=== PATIENT | male | born 1955 | race Caucasian/White ===

== ENCOUNTER 2018-03-19 09:55 | Inpatient (IN) | payer OTHER ==
[~2018-03-19] VITALS: Ht 167.6 cm; Wt 96.9 kg
[2018-03-19] MEDS ORDERED: MoRPHine SULFATE 4 MG/ML 1 ML CARP\\VIAL IV STA ×2 (10:28→11:41)
[2018-03-19] MEDS ORDERED: METF1000 PO (10:48)
[2018-03-19] MEDS ORDERED: ATOR10TA82 PO (10:48)
[2018-03-19] MEDS ORDERED: DICL-201 PO (10:48)
[2018-03-19] MEDS ORDERED: PROP10TA7 PO (10:48)
[2018-03-19] MEDS ORDERED: TRAM-10 PO (10:48)
[2018-03-19] MEDS ORDERED: QUET1TAB34 PO (10:48)
[2018-03-19] MEDS ORDERED: NRN600 PO (10:48)
[2018-03-19] MEDS ORDERED: CYCL10TA6 PO (10:48)
[2018-03-19] MEDS ORDERED: CYM/60 PO (10:48)
[2018-03-19] MEDS ORDERED: TAMS0.4C38 PO (10:48)
[2018-03-19 10:58] LABS: BASO % 0.5 %; BASO ABS # 0.05 K/uL (0-0.2); EOS % 2.8 %; EOS ABS # 0.27 K/uL (0-0.5); HEMATOCRIT 44.1 % (42-52); HEMOGLOBIN 15.6 g/dL (14.0-18.0); IG# 0.06 K/uL (0.00-0.02); LYMPH % 20.1 %; LYMPH ABS # 1.95 K/uL (1.2-3.4); MEAN CELL VOLUME 88.6 fL (80-100); MEAN CORPUSCULAR HEMOGLOBIN 31.3 pg (25-34); MEAN CORPUSCULAR HGB CONC 35.4 g/dl (32-36); MEAN PLATELET VOLUME 10.7 fL (7.4-10.4); MONO % 8.4 %; MONO ABS # 0.82 K/uL (0.11-0.59); NEUT % 67.6 %; NEUT ABS # 6.56 K/uL (1.4-6.5); PLATELET COUNT 177 K/uL (130-400); RED CELL DISTRIBUTION WIDTH SD 41.6 fL (36.4-46.3); WHITE BLOOD COUNT 9.71 K/uL (4.8-10.8)
[2018-03-19 11:18] LABS: ALBUMIN 3.7 gm/dl (3.4-5.0); CALCIUM 8.3 mg/dl (8.5-10.1); CREATININE 1.35 mg/dl (0.60-1.40); POTASSIUM 4.8 mmol/L (3.5-5.1); TOTAL PROTEIN 7.3 gm/dl (6.4-8.2)
[2018-03-19] MEDS ORDERED: SODIUM CHLORIDE 0.9% 1000ML 1,000 ML IV STA (11:24)
--- NOTE | 2018-03-19 11:34 | DIAGNOSTIC IMAGING REPORT ---
CT LUMBAR SPINE WITHOUT CT DOSE: 719.11 mGy.cm CLINICAL HISTORY: low back pain, hx spinal surgeries TECHNIQUE: Helical images were acquired in transverse plane. Reformatted sagittal and coronal images were reviewed. A dose lowering technique was utilized adhering to the principles of ALARA. CONTRAST: No contrast was administered COMPARISON STUDY: None. FINDINGS: L1-2 level: There is a minimal circumferential disc bulge. There is no spinal or foraminal stenosis. L2-3 level: There is an L2 compression fracture which appears chronic. There is minimal retrolisthesis of L2 on L3. There is a mild circumferential disc bulge. There is no significant spinal stenosis. There is minor foraminal narrowing. L3-4 level: There are postsurgical changes of a posterior laminectomy and posterior spinal fusion. There is a suspected large anterior extradural lesion (27 x 11 mm). Evaluation is limited due to artifact from the hardware. An MRI is recommended in follow-up. L4-5 level: There are postsurgical changes of a posterior laminectomy. There is evidence for posterior spinal fusion. There is no significant spinal or foraminal stenosis. L5-S1 level: There are postsurgical changes of a discectomy and interbody fusion. There is a grade 1 spondylolisthesis of L5 and S1. There is mild endplate irregularity. There is no significant spinal or foraminal stenosis. There is a 36 mm right renal cyst. IMPRESSION: 1. Examination limited due to artifact from an L3-S1 spinal fusion with pedicle screw fixation 2. L2 compression fracture which is felt to be old 3. Suspected large anterior extradural lesion at the L3 level. On a statistical basis this represents a large extruded disc herniation although other pathologic entities cannot be excluded. An emergent MRI study without and with contrast is recommended. Electronically signed by: Yan Robins M.D. 03/19/2018 11:33 AM Dictated Date/Time: 03/19/2018 11:22 AM
[2018-03-19] MEDS ORDERED: HYDROmorphone INJ 1 MG/ML SYR IV STA (12:31)
[2018-03-19] MEDS ORDERED: HYDROmorphone INJ 0.5 MG/0.5 ML SYR IV STA (15:15)
--- NOTE | 2018-03-19 15:29 | DIAGNOSTIC IMAGING REPORT ---
LUMBAR SPINE MRI WITH AND WITHOUT CONTRAST HISTORY: low back pain TECHNIQUE: Multiplanar multisequence MRI of the lumbar spine was performed both before and after the intravenous administration of contrast. COMPARISON: Lumbar spine CT 03/19/2018. FINDINGS: For the purpose of the report the L5-S1 disc space will be located on axial image 25 of 26. There is 5 mm of anterolisthesis of L5-S1, unchanged. The L5-S1 disc space appears fused. There is posterior decompression fusion from L3 through S1 with pedicle screws and rods. The conus terminates at the T12-L1 disc space. Moderate anterior wedging within the L2 vertebral body which demonstrates mild edema. This favors a subacute to chronic compression deformity. No acute fractures within the lumbar spine. Metallic artifact seen within the mid to lower lumbar spine. The bladder is markedly distended. Paraspinal soft tissues are unremarkable. Mild disc space narrowing at L4-5. Moderate to severe disc space narrowing at L2-L3. L1-L2: Small broad-based posterior disc bulge without significant central canal or neural foraminal narrowing. L2-L3: The mid to posterior aspect of the L2-L3 disc space is filled with fluid rather than disc material. There is a large lobular T2 hypointense, T1 hypointense nonenhancing structure which demonstrates located primarily posterior to the L3 vertebral body. This measures 2.3 x 2.2 x 1.0 cm. This appears to represent a large disc extrusion with inferior subligamentous migration. This results in moderate to severe central canal narrowing. There is mild bilateral neural foraminal narrowing. This compresses the transiting bilateral nerve roots. L3-L4: No significant central canal narrowing due to the posterior decompression. Severe left neural foraminal narrowing due to the L2-L3 disc herniation. Mild right neural foraminal narrowing. L4-L5: Moderate right neural foraminal narrowing. No significant central canal narrowing. Mild left neural foraminal narrowing. L5-S1: No significant central canal narrowing. There is severe bilateral neural foraminal narrowing due to the spondylolisthesis. IMPRESSION: 1. A 2.2 x 2.2 x 1.0 cm hypointense lobular structure posterior to the L3 vertebral body resulting in moderate to severe central canal narrowing. This appears to represent a large L2-L3 disc extrusion. 2. Additional degenerative changes as described above. 3. L3-S1 posterior decompression and fusion. 4. Distended bladder. Recommend catheterization. 5. Moderate anterior wedging within the L2 vertebral body. This favors a subacute to chronic compression fracture. Electronically signed by: Carter Whitman M.D. 03/19/2018 3:28 PM Dictated Date/Time: 03/19/2018 2:55 PM
[2018-03-19] MEDS ORDERED: DEXAMETHASONE INJ 8 MG in SYRINGE 0 ML IV STA (15:48)
--- NOTE | 2018-03-19 16:34 | DIAGNOSTIC IMAGING REPORT ---
L-SPINE MIN 4 VIEWS ROUTINE HISTORY: Pain back pain COMPARISON: None. FINDINGS: There is no fracture. No subluxation. Operative changes consistent with laminectomy and fusion from L3 through S1. Findings of an old moderate wedge deformity L2. Degenerative disc change L2-L3 and to a lesser extent remainder the lumbar spine CONSIDERED STABLE. IMPRESSION: No fracture or subluxation within the lumbar spine. Stable postoperative changes low lumbar spine. The above report was generated using voice recognition software. It may contain grammatical, syntax or spelling errors. Electronically signed by: Leoncio Mcnamara M.D. 03/19/2018 4:33 PM Dictated Date/Time: 03/19/2018 4:32 PM
--- NOTE | 2018-03-19 16:39 | EMERGENCY ROOM VISIT NOTE ---
History First contact with patient: 10:16 Chief Complaint: BACK PAIN Stated Complaint: BACK PAIN History of Present Illness The patient is a 62 year old male who presents to the Emergency Room with complaints of "back pain". The patient states that he has a history of chronic low back pain and recently moved here from [place]. He was traveling in a car all day yesterday. He woke up today and was doing all right noted when he moved he had some back pain and a dog jumped on the couch and causes pain to worsen. He states that it is now radiating down to the groin region. He states that he has a history of 2 surgeries as well as currently a large disc bulge and compression fracture. He states that his pain was an 8-9/10 but is now a 15/10. No cauda equina symptoms. Review of Systems A complete 10-point Review of Systems was discussed with the patient, with pertinent positives and negatives listed in the History of Present Illness. All remaining Review of Systems questions can be considered negative unless otherwise specified. Past Medical/Surgical History Low back pain, diabetes, among others. Family History Noncontributory. Social History Smoking Status: Never Smoker Patient just moved to the area from [place]. Current/Historical Medications Scheduled Atorvastatin (Lipitor), 10 MG PO DAILY Cyclobenzaprine Hcl (Flexeril), 10 MG PO TID Diclofenac (Voltaren), 75 MG PO BID Duloxetine HCl (Cymbalta), 60 MG PO DAILY Gabapentin (Gabapentin), 1,200 MG PO TID Metformin Hcl (Glucophage), 1,000 MG PO BID Propranolol (Inderal), 10 MG PO DAILY Quetiapine Fumarate (Seroquel), 200 MG PO QPM Tamsulosin Hcl (Flomax), 0.4 MG PO HS Scheduled PRN Tramadol (Ultram), 50 MG PO Q6H PRN for Pain Physical Exam Vital Signs Date Time Temp Pulse Resp B/P (MAP) Pulse Ox O2 Delivery O2 Flow Rate FiO2 03/19/18 14:30 91 16 149/81 98 Nasal Cannula 3.0 03/19/18 13:45 96 16 151/88 98 Room Air 03/19/18 13:26 89 03/19/18 12:56 95 Nasal Cannula 2.0 03/19/18 12:37 95 16 124/105 97 Room Air 03/19/18 10:45 98 Room Air 03/19/18 10:42 82 16 106/28 96 Room Air 03/19/18 10:15 92 03/19/18 10:06 36.6 83 16 128/105 99 Room Air Physical Exam VITAL SIGNS - Vital signs and nursing notes were reviewed. Stable. GENERAL -62-year-old male appearing his stated age who is in no acute distress. Communicates well with provider and answers questions appropriately. SKIN - Without rashes. No meningeal or petechial rash. HEAD - NC/AT. EYES - Sclera anicteric. EARS - No deformities of external structures noted on gross examination bilaterally. NOSE - Midline and without cyanosis. No epistaxis or purulent drainage noted. MOUTH/OROPHARYNX - Without perioral cyanosis. NECK - No nuchal rigidity. LUNGS - Chest wall symmetric without accessory muscle use, intercostals retractions, or central cyanosis. Normal vesicular breath sounds CTA B/L. No wheezes, rales, or rhonchi appreciated. CARDIAC - RRR with S1/S2. No murmur, rubs, or gallops appreciated. ABDOMEN - Abdominal contour normal without pulsations or visible masses. BS normoactive all four quadrants. No tenderness, palpable masses, hepatosplenomegaly, or ascites noted. MUSCULOSKELETAL: No tenderness of the flanks noted. EXTREMITIES -no neurovascular deficit appreciated +5/5 strength noted in UE/LE bilaterally. NEUROLOGIC - Cranial nerves II through XII grossly intact. Sensory intact to light touch throughout. PSYCH - A&O, and cooperates fully with examiner. Pt is very pleasant and interacts well with examiner. Medical Decision & Procedures ER Provider Diagnostic Interpretation: CT LUMBAR SPINE WITHOUT CT DOSE: 719.11 mGy.cm CLINICAL HISTORY: low back pain, hx spinal surgeries TECHNIQUE: Helical images were acquired in transverse plane. Reformatted sagittal and coronal images were reviewed. A dose lowering technique was utilized adhering to the principles of ALARA. CONTRAST: No contrast was administered COMPARISON STUDY: None. FINDINGS: L1-2 level: There is a minimal circumferential disc bulge. There is no spinal or foraminal stenosis. L2-3 level: There is an L2 compression fracture which appears chronic. There is minimal retrolisthesis of L2 on L3. There is a mild circumferential disc bulge. There is no significant spinal stenosis. There is minor foraminal narrowing. L3-4 level: There are postsurgical changes of a posterior laminectomy and posterior spinal fusion. There is a suspected large anterior extradural lesion (27 x 11 mm). Evaluation is limited due to artifact from the hardware. An MRI is recommended in follow-up. L4-5 level: There are postsurgical changes of a posterior laminectomy. There is evidence for posterior spinal fusion. There is no significant spinal or foraminal stenosis. L5-S1 level: There are postsurgical changes of a discectomy and interbody fusion. There is a grade 1 spondylolisthesis of L5 and S1. There is mild endplate irregularity. There is no significant spinal or foraminal stenosis. There is a 36 mm right renal cyst. IMPRESSION: 1. Examination limited due to artifact from an L3-S1 spinal fusion with pedicle screw fixation 2. L2 compression fracture which is felt to be old 3. Suspected large anterior extradural lesion at the L3 level. On a statistical basis this represents a large extruded disc herniation although other pathologic entities cannot be excluded. An emergent MRI study without and with contrast is recommended. Electronically signed by: Yan Robins M.D. 03/19/2018 11:33 AM Dictated Date/Time: 03/19/2018 11:22 AM [~ rep ct add3]] LUMBAR SPINE MRI WITH AND WITHOUT CONTRAST HISTORY: low back pain TECHNIQUE: Multiplanar multisequence MRI of the lumbar spine was performed both before and after the intravenous administration of contrast. COMPARISON: Lumbar spine CT 03/19/2018. FINDINGS: For the purpose of the report the L5-S1 disc space will be located on axial image 25 of 26. There is 5 mm of anterolisthesis of L5-S1, unchanged. The L5-S1 disc space appears fused. There is posterior decompression fusion from L3 through S1 with pedicle screws and rods. The conus terminates at the T12-L1 disc space. Moderate anterior wedging within the L2 vertebral body which demonstrates mild edema. This favors a subacute to chronic compression deformity. No acute fractures within the lumbar spine. Metallic artifact seen within the mid to lower lumbar spine. The bladder is markedly distended. Paraspinal soft tissues are unremarkable. Mild disc space narrowing at L4-5. Moderate to severe disc space narrowing at L2-L3. L1-L2: Small broad-based posterior disc bulge without significant central canal or neural foraminal narrowing. L2-L3: The mid to posterior aspect of the L2-L3 disc space is filled with fluid rather than disc material. There is a large lobular T2 hypointense, T1 hypointense nonenhancing structure which demonstrates located primarily posterior to the L3 vertebral body. This measures 2.3 x 2.2 x 1.0 cm. This appears to represent a large disc extrusion with inferior subligamentous migration. This results in moderate to severe central canal narrowing. There is mild bilateral neural foraminal narrowing. This compresses the transiting bilateral nerve roots. L3-L4: No significant central canal narrowing due to the posterior decompression. Severe left neural foraminal narrowing due to the L2-L3 disc herniation. Mild right neural foraminal narrowing. L4-L5: Moderate right neural foraminal narrowing. No significant central canal narrowing. Mild left neural foraminal narrowing. L5-S1: No significant central canal narrowing. There is severe bilateral neural foraminal narrowing due to the spondylolisthesis. IMPRESSION: 1. A 2.2 x 2.2 x 1.0 cm hypointense lobular structure posterior to the L3 vertebral body resulting in moderate to severe central canal narrowing. This appears to represent a large L2-L3 disc extrusion. 2. Additional degenerative changes as described above. 3. L3-S1 posterior decompression and fusion. 4. Distended bladder. Recommend catheterization. 5. Moderate anterior wedging within the L2 vertebral body. This favors a subacute to chronic compression fracture. Electronically signed by: Carter Whitman M.D. 03/19/2018 3:28 PM Dictated Date/Time: 03/19/2018 2:55 PM Laboratory Results 03/19/18 10:40 Red Blood Count 4.98, Mean Corpuscular Volume 88.6, Mean Corpuscular Hemoglobin 31.3, Mean Corpuscular Hemoglobin Concent 35.4, Mean Platelet Volume 10.7, Neutrophils (%) (Auto) 67.6, Lymphocytes (%) (Auto) 20.1, Monocytes (%) (Auto) 8.4, Eosinophils (%) (Auto) 2.8, Basophils (%) (Auto) 0.5, Neutrophils # (Auto) 6.56, Lymphocytes # (Auto) 1.95, Monocytes # (Auto) 0.82, Eosinophils # (Auto) 0.27, Basophils # (Auto) 0.05 7/23/18 10:40 Test 03/19/18 10:40 03/19/18 13:20 White Blood Count 9.71 K/uL (4.8-10.8) Red Blood Count 4.98 M/uL (4.7-6.1) Hemoglobin 15.6 g/dL (14.0-18.0) Hematocrit 44.1 % (42-52) Mean Corpuscular Volume 88.6 fL (80-100) Mean Corpuscular Hemoglobin 31.3 pg (25-34) Mean Corpuscular Hemoglobin Concent 35.4 g/dl (32-36) Platelet Count 177 K/uL (130-400) Mean Platelet Volume 10.7 fL (7.4-10.4) Neutrophils (%) (Auto) 67.6 % Lymphocytes (%) (Auto) 20.1 % Monocytes (%) (Auto) 8.4 % Eosinophils (%) (Auto) 2.8 % Basophils (%) (Auto) 0.5 % Neutrophils # (Auto) 6.56 K/uL (1.4-6.5) Lymphocytes # (Auto) 1.95 K/uL (1.2-3.4) Monocytes # (Auto) 0.82 K/uL (0.11-0.59) Eosinophils # (Auto) 0.27 K/uL (0-0.5) Basophils # (Auto) 0.05 K/uL (0-0.2) RDW Standard Deviation 41.6 fL (36.4-46.3) RDW Coefficient of Variation 13.0 % (11.5-14.5) Immature Granulocyte % (Auto) 0.6 % Immature Granulocyte # (Auto) 0.06 K/uL (0.00-0.02) Anion Gap 7.0 mmol/L (3-11) Est Creatinine Clear Calc Drug Dose 65.5 ml/min Estimated GFR () 64.3 Estimated GFR (Non- 55.5 BUN/Creatinine Ratio 14.3 (10-20) Calcium Level 8.3 mg/dl (8.5-10.1) Total Bilirubin 0.8 mg/dl (0.2-1) Aspartate Amino Transf (AST/SGOT) 34 U/L (15-37) Alanine Aminotransferase (ALT/SGPT) 44 U/L (12-78) Alkaline Phosphatase 139 U/L (45-117) Total Protein 7.3 gm/dl (6.4-8.2) Albumin 3.7 gm/dl (3.4-5.0) Globulin 3.6 gm/dl (2.5-4.0) Albumin/Globulin Ratio 1.0 (0.9-2) Medications Administered Medications (Trade) Dose Ordered Sig/Shemar Route Start Time Stop Time Status Last Admin Dose Admin Morphine Sulfate (MoRPHine SULFATE INJ) 4 mg NOW STAT IV 03/19/18 10:28 03/19/18 10:30 DC 03/19/18 10:41 4 MG Sodium Chloride 1,000 ml @ 999 mls/hr Q1H1M STAT IV 03/19/18 11:24 03/19/18 12:24 DC 03/19/18 11:24 999 MLS/HR Morphine Sulfate (MoRPHine SULFATE INJ) 4 mg NOW STAT IV 03/19/18 11:41 03/19/18 11:43 DC 03/19/18 12:23 4 MG Hydromorphone HCl (Dilaudid Inj) 1 mg NOW STAT IV 03/19/18 12:31 03/19/18 12:32 DC 03/19/18 12:55 1 MG Hydromorphone HCl (Dilaudid Inj) 0.5 mg NOW STAT IV 03/19/18 15:15 03/19/18 15:16 DC 03/19/18 15:20 0.5 MG Medical Decision Patient was seen and evaluated as above in room B11. Review was performed of nursing notes and vital signs. After obtaining a thorough history and physical examination the above work up was performed. He presents to us today via ambulance with a large amount of back pain. He is diaphoretic on exam, and appears to be in pain. CT scan was obtained secondary to his presentation as well as his underlying surgical history in the spine. The radiologist recommended an emergent MRI with contrast. This did reveal a large herniated disc. Other findings as noted above. I discussed this with the on-call spinal surgeon, Dr. Cabezas. We discussed other modalities and a plain film x-ray was recommended in addition to curb setter helper in identification of the hardware. I believe this is reasonable. We discussed steroids however the patient notes that last time he had these had a severe infection. He declined the steroids. This was canceled. Patient was admitted to medicine for pain control with likely a consult to spinal surgery. Patient was agreeable to staying. In review of his blood work, CBC reveals no leukocytosis or anemia. He does appear to be dehydrated with fluids and the calcium is low at 8.3. BUN 19 with creatinine 1.35. Urinalysis pending. I will note that on the MRI distended bladder was noted however the patient voided upon returning from MRI over 600 cc. I do not believe the catheterization is required. No evidence of infection. Case discussed with the amount and the hospitalist, Dr. Sophia Capps. Please refer to for the documentation regarding his stay. I will note that at no point throughout his stay did he exhibit cauda equina syndrome symptoms or signs. The patient was educated upon management, had questions answered prior to discharge, and was discharged home in good condition. In the evaluation and treatment of this patient the following differential diagnoses were entertained: Lumbar fracture, dislocation, cauda equina syndrome , herniated disc, acute abdomen, among others. Impression Primary Impression: L2-L3 disc extrusion Additional Impression: Intractable low back pain Departure Information Dispostion Admitted as an inpatient Condition FAIR Referrals No Doctor, Assigned (PCP) Patient Instructions My [facility] Problem Qualifiers
[2018-03-19] MEDS ORDERED: MoRPHine SULFATE 2 MG/ML CARP IV PRN (17:30)
[2018-03-19] MEDS ORDERED: ONDANSETRON INJ 2 MG/ML 2 ML VIAL IV PRN (17:30)
[2018-03-19] MEDS ORDERED: GLUCOSE 10 TABS/TUBE PO PRN (17:30)
[2018-03-19] MEDS ORDERED: CARBOHYDRATES FOR HYPOGLYCEMIA PO PRN (17:30)
[2018-03-19] MEDS ORDERED: ACETAMINOPHEN 325 MG TAB PO PRN (17:30)
[2018-03-19] MEDS ORDERED: MAGNESIUM HYDROXIDE SUSP 30 ML UDC PO PRN (17:30)
[2018-03-19] MEDS ORDERED: GLUCOSE 40% GEL 15 GM TUBE PO PRN (17:30)
[2018-03-19] MEDS ORDERED: GLUCAGON FOR INJ 1 MG VIAL SQ PRN (17:30)
[2018-03-19] MEDS ORDERED: DEXTROSE 50% 50 ML SYR IV PRN (17:30)
--- NOTE | 2018-03-19 17:36 | History and Physical ---
History & Physical Date & Time of Service: Mar 19, 2018 at 17:04 Chief Complaint: Back Pain Primary Care Physician: No Doctor, Assigned History of Present Illness Source: patient, family 62 y/o M c/o intractable back pain. Pt has hx of LBP. He had a fusion in 2011 and another fusion in 2015 with his prior ortho care in [place]. He continued to have some back pain after his surgeries, but it had been better overall until a few months ago when it started to worsen again. He had an MRI and was hospitalized again in [place] for back pain. Pt is moving here from [place] s/p a divorce. He has family in the area that he is staying with. He was lying on the couch when a dog jumped on him and this caused his LBP to get even worse, so he came to the ED. He is limited in mobility due to pain, but maintains ability to move his LE. He does note a bit of urine incontinence in the night which is minimal and he attributes to flomax and flexaril combination. He has no issues with incontinence during the day. He feels his usual otherwise. He has been eating without issue. Pt denies fever, SOB, chest pain, abd pain, n/v/c /d, LE pain or swelling. Pt states he has afib, but had an ablation in 2014 and was told he no longer needs anticoagulation. Past Medical/Surgical History Afib s/p ablation HTN DM BPH Depression Chronic pain syndrome IBS Family History Mother: from [place] at 62 Father: from [place] at 67 Social History Smoking Status: Never Smoker Alcohol Use: occasionally (a few drinks every few months) Drug Use: none Allergies Coded Allergies: No Known Allergies (Unverified , 03/19/18) Home Medications Scheduled Atorvastatin (Lipitor), 10 MG PO DAILY Cyclobenzaprine Hcl (Flexeril), 10 MG PO TID Diclofenac (Voltaren), 75 MG PO BID Duloxetine HCl (Cymbalta), 60 MG PO DAILY Gabapentin (Gabapentin), 1,200 MG PO TID Metformin Hcl (Glucophage), 1,000 MG PO BID Propranolol (Inderal), 10 MG PO DAILY Quetiapine Fumarate (Seroquel), 200 MG PO QPM Tamsulosin Hcl (Flomax), 0.4 MG PO HS Scheduled PRN Tramadol (Ultram), 50 MG PO Q6H PRN for Pain Review of Systems Pertinent positives and negatives reviewed in HPI--all others negative Physical Exam Vital Signs Date Time Temp Pulse Resp B/P (MAP) Pulse Ox O2 Delivery O2 Flow Rate FiO2 03/19/18 16:45 83 20 146/89 97 Nasal Cannula 2.0 03/19/18 14:30 91 16 149/81 98 Nasal Cannula 3.0 03/19/18 13:45 96 16 151/88 98 Room Air 03/19/18 13:26 89 03/19/18 12:56 95 Nasal Cannula 2.0 03/19/18 12:37 95 16 124/105 97 Room Air 03/19/18 10:45 98 Room Air 03/19/18 10:42 82 16 106/28 96 Room Air 03/19/18 10:15 92 03/19/18 10:06 36.6 83 16 128/105 99 Room Air General Appearance: no apparent distress, + obese Head: normocephalic, atraumatic Eyes: normal inspection, sclerae normal Respiratory/Chest: normal breath sounds, no respiratory distress Cardiovascular: regular rate, rhythm, no edema Abdomen/GI: non tender, soft Extremities/Musculoskelatal: no calf tenderness, no pedal edema Neurologic/Psych: alert, oriented x 3, + pertinent finding (a bit disoriented s /p pain meds in the ED) Skin: normal color, warm/dry Diagnostics Laboratory Results Results Past 24 Hours Test 03/19/18 10:40 03/19/18 13:20 Range/Units White Blood Count 9.71 4.8-10.8 K/uL Red Blood Count 4.98 4.7-6.1 M/uL Hemoglobin 15.6 14.0-18.0 g/dL Hematocrit 44.1 42-52 % Mean Corpuscular Volume 88.6 80-100 fL Mean Corpuscular Hemoglobin 31.3 25-34 pg Mean Corpuscular Hemoglobin Concent 35.4 32-36 g/dl Platelet Count 177 130-400 K/uL Mean Platelet Volume 10.7 7.4-10.4 fL Neutrophils (%) (Auto) 67.6 % Lymphocytes (%) (Auto) 20.1 % Monocytes (%) (Auto) 8.4 % Eosinophils (%) (Auto) 2.8 % Basophils (%) (Auto) 0.5 % Neutrophils # (Auto) 6.56 1.4-6.5 K/uL Lymphocytes # (Auto) 1.95 1.2-3.4 K/uL Monocytes # (Auto) 0.82 0.11-0.59 K/uL Eosinophils # (Auto) 0.27 0-0.5 K/uL Basophils # (Auto) 0.05 0-0.2 K/uL RDW Standard Deviation 41.6 36.4-46.3 fL RDW Coefficient of Variation 13.0 11.5-14.5 % Immature Granulocyte % (Auto) 0.6 % Immature Granulocyte # (Auto) 0.06 0.00-0.02 K/uL Sodium Level 137 136-145 mmol/L Potassium Level 4.8 3.5-5.1 mmol/L Chloride Level 106 98-107 mmol/L Carbon Dioxide Level 24 21-32 mmol/L Anion Gap 7.0 3-11 mmol/L Blood Urea Nitrogen 19 7-18 mg/dl Creatinine 1.35 0.60-1.40 mg/dl Est Creatinine Clear Calc Drug Dose 65.5 ml/min Estimated GFR () 64.3 Estimated GFR (Non- 55.5 BUN/Creatinine Ratio 14.3 10-20 Random Glucose 203 70-99 mg/dl Calcium Level 8.3 8.5-10.1 mg/dl Total Bilirubin 0.8 0.2-1 mg/dl Aspartate Amino Transf (AST/SGOT) 34 15-37 U/L Alanine Aminotransferase (ALT/SGPT) 44 12-78 U/L Alkaline Phosphatase 139 45-117 U/L Total Protein 7.3 6.4-8.2 gm/dl Albumin 3.7 3.4-5.0 gm/dl Globulin 3.6 2.5-4.0 gm/dl Albumin/Globulin Ratio 1.0 0.9-2 Urine Color YELLOW Urine Appearance CLEAR CLEAR Urine pH 5.5 4.5-7.5 Urine Specific [place] 1.020 1.000-1.030 Urine Protein NEG NEG Urine Glucose (UA) 2+ NEG Urine Ketones NEG NEG Urine Occult Blood NEG NEG Urine Nitrite NEG NEG Urine Bilirubin NEG NEG Urine Urobilinogen NEG NEG Urine Leukocyte Esterase NEG NEG Diagnostic Radiology CT L-spine: 1. Examination limited due to artifact from an L3-S1 spinal fusion with pedicle screw fixation 2. L2 compression fracture which is felt to be old 3. Suspected large anterior extradural lesion at the L3 level. On a statistical basis this represents a large extruded disc herniation although other pathologic entities cannot be excluded. An emergent MRI study without and with contrast is recommended. MRI L-spine: 1. A 2.2 x 2.2 x 1.0 cm hypointense lobular structure posterior to the L3 vertebral body resulting in moderate to severe central canal narrowing. This appears to represent a large L2-L3 disc extrusion. 2. Additional degenerative changes as described above. 3. L3-S1 posterior decompression and fusion. 4. Distended bladder. Recommend catheterization. 5. Moderate anterior wedging within the L2 vertebral body. This favors a subacute to chronic compression fracture. XR L-spine: No fracture or subluxation within the lumbar spine. Stable postoperative changes low lumbar spine. Impression Assessment and Plan 62 y/o M who was admitted on 03/19 with intractable LBP LBP: CT and emergent MRI noted for severe disc herniation Hx of fusion x2 with ortho in [place] ED discussed with Dr. Cabezas who rec'd for decadron, however pt refused due to prior bad experience Toradol, morphine EKG pending Afib/HTN: stable, states off of anticoagulation s/p ablation in 2015 continue home meds DM: metformin only SSI PRN A1c pending BPH: continue home meds Depression: continue home meds Chronic pain syndrome: continue gabapentin Other: Full code DM AHA diet SCDs for DVT proph given possible OR Resuscitation Status VTE Prophylaxis Will order VTE Prophylaxis: Yes
[2018-03-19 18:47] VITALS: BP 137/86; PULSE 71; TEMP 36.5; O2SAT 96; BMI 34.5
[2018-03-19] MEDS: KETOROLAC TROMETHAMINE 30 MG/ML VIAL IV PRN (19:49)
[2018-03-19] MEDS ORDERED: NURSING VERBAL MED ORDER ONE (20:00)
[2018-03-19] MEDS: QUETIAPINE FUMARATE 200 MG TAB PO SCH (21:44)
[2018-03-19] MEDS: GABAPENTIN 600 MG TAB PO SCH (21:45)
[2018-03-19] MEDS: DICLOFENAC SOD EC 75 MG TABCR PO SCH (21:45)
[2018-03-19] MEDS: TAMSULOSIN HCL 0.4 MG CAP PO SCH (21:45)
[2018-03-19] MEDS: CYCLOBENZAPRINE HCL 10 MG TAB PO SCH (21:45)
[2018-03-19] MEDS: INSULIN ASPART 100 UNITS/ML 3 ML PEN SC SCH (21:50)
[2018-03-19 23:25] VITALS: BP 123/79; PULSE 69; TEMP 36.5; O2SAT 99
[2018-03-19] MEDS: TRAMADOL HCL 50 MG TAB PO PRN (23:42)
[2018-03-20] MEDS: MoRPHine SULFATE 4 MG/ML 1 ML CARP\\VIAL IV PRN ×3 (04:37→17:18)
[2018-03-20 07:09] LABS: HEMOGLOBIN A1C 8.1 % (4.5-5.6)
[2018-03-20] MEDS: TRAMADOL HCL 50 MG TAB PO PRN ×3 (07:41→20:37)
[2018-03-20] MEDS: KETOROLAC TROMETHAMINE 30 MG/ML VIAL IV PRN ×3 (07:42→20:37)
[2018-03-20] MEDS: CYCLOBENZAPRINE HCL 10 MG TAB PO SCH ×3 (07:42→20:38)
[2018-03-20] MEDS: GABAPENTIN 600 MG TAB PO SCH ×3 (07:43→20:38)
[2018-03-20 08:38] VITALS: BP 126/79; PULSE 58; TEMP 36.4; O2SAT 99
[2018-03-20] MEDS: DULOXETINE HCL 60 MG CAP PO SCH (08:51)
[2018-03-20] MEDS: ATORVASTATIN 10 MG TAB PO SCH (08:52)
[2018-03-20] MEDS: DICLOFENAC SOD EC 75 MG TABCR PO SCH ×2 (08:52→20:38)
[2018-03-20] MEDS: PROPRANOLOL HCL 10 MG TAB PO SCH (08:52)
[2018-03-20] MEDS: INSULIN ASPART 100 UNITS/ML 3 ML PEN SC SCH ×4 (08:57→20:42)
--- NOTE | 2018-03-20 13:02 | Orthopedic Consultation ---
Orthopedic Consultation Date of Consultation: Mar 20, 2018. Attending Physician: Nikos Mcclelland D.O. Reason for Consultation: Back and leg pain History of Present Illness This is a 62-year-old male that presents with worsening back and bilateral leg pain. He states this is been progressive over the past several months. He is recently moved to the area from [place]. He has had history of back surgery in 2012 and again 2016 in [place] region. Describes pain across the lumbosacral junction of the bilateral buttocks anterior thighs and down his legs. The right leg extends below the knee into the dorsum of his foot. It is to the point that he is markedly incapacitated with limited ability to stand walk and ambulate with any duration. He is only comfortable lying completely still in bed. Appears that he is undergone extensive workup while in [place] but has not pursued any further surgery. MRI of the lumbar spine obtained yesterday at [facility] does demonstrate evidence of fusion with instrumentation L3 to the sacrum. Is an old compression fracture of L2 with a massive disc herniation at L2-3 and caudal migration creating significant lateral recess and central stenosis. Past Medical/Surgical History Medical Problems: (1) Intractable low back pain Status: Acute Social History Smoking Status: Never Smoker Alcohol Use: occasionally (a few drinks every few months) Drug Use: none Allergies Coded Allergies: No Known Allergies (Unverified , 03/19/18) Home Medications Scheduled Atorvastatin (Lipitor), 10 MG PO DAILY Cyclobenzaprine Hcl (Flexeril), 10 MG PO TID Diclofenac (Voltaren), 75 MG PO BID Duloxetine HCl (Cymbalta), 60 MG PO DAILY Gabapentin (Gabapentin), 1,200 MG PO TID Metformin Hcl (Glucophage), 1,000 MG PO BID Propranolol (Inderal), 10 MG PO DAILY Quetiapine Fumarate (Seroquel), 200 MG PO QPM Tamsulosin Hcl (Flomax), 0.4 MG PO HS Scheduled PRN Tramadol (Ultram), 50 MG PO Q6H PRN for Pain Current Inpatient Medications Current Inpatient Medications Medications (Trade) Dose Ordered Sig/Shemar Route Start Time Stop Time Status Last Admin Dose Admin Acetaminophen (Tylenol Tab) 650 mg Q4H PRN PO 03/19/18 17:30 04/18/18 17:29 Magnesium Hydroxide (Milk Of Magnesia Susp) 30 ml Q6H PRN PO 03/19/18 17:30 04/18/18 17:29 Ondansetron HCl (Zofran Inj) 4 mg Q6H PRN IV 03/19/18 17:30 04/18/18 17:29 Insulin Aspart (novoLOG ASPART) SLIDING SCALE If C... ACHS SC 03/19/18 21:00 04/18/18 20:59 03/20/18 08:57 4 UNITS Glucose (Glucose 40% Gel) 15-30 GRAMS 15 GRAMS... UD PRN PO 03/19/18 17:30 04/18/18 17:29 Glucose (Glucose Chew Tab) 4-8 Tablets 4 Tabl... UD PRN PO 03/19/18 17:30 04/18/18 17:29 Dextrose (Dextrose 50% 50ML Syringe) 25-50ML 25ML FOR ... UD PRN IV 03/19/18 17:30 04/18/18 17:29 Glucagon (Glucagon Inj) 1 mg UD PRN SQ 03/19/18 17:30 04/18/18 17:29 Carbohydrates (Carbohydrates For Hypoglycemia) 15-30 GRAMS 15 grams if BSG 54-69... UD PRN PO 03/19/18 17:30 04/18/18 17:29 Atorvastatin Calcium (Lipitor Tab) 10 mg DAILY PO 03/20/18 09:00 04/19/18 08:59 03/20/18 08:52 10 MG Cyclobenzaprine HCl (Flexeril Tab) 10 mg TID PO 03/19/18 21:00 04/18/18 20:59 03/20/18 07:42 10 MG Diclofenac Sodium (Voltaren Tab) 75 mg BID PO 03/19/18 21:00 04/18/18 20:59 03/20/18 08:52 75 MG Duloxetine HCl (Cymbalta Cap) 60 mg DAILY PO 03/20/18 09:00 04/19/18 08:59 03/20/18 08:51 60 MG Gabapentin (Neurontin Tab) 1,200 mg TID PO 03/19/18 21:00 04/18/18 20:59 03/20/18 07:43 1,200 MG Propranolol HCl (Inderal Tab) 10 mg DAILY PO 03/20/18 09:00 8/23/18 08:59 03/20/18 08:52 10 MG Quetiapine Fumarate (seroQUEL TAB) 200 mg QPM PO 03/19/18 21:00 04/18/18 20:59 Tamsulosin HCl (Flomax Cap) 0.4 mg HS PO 03/19/18 21:00 04/18/18 20:59 03/19/18 21:45 0.4 MG Tramadol HCl (Ultram Tab) 50 mg Q6H PRN PO 03/19/18 17:30 04/18/18 17:29 03/20/18 07:41 50 MG Ketorolac Tromethamine (Toradol Inj) 30 mg Q6H PRN IV 03/19/18 17:30 03/24/18 17:29 03/20/18 07:42 30 MG Morphine Sulfate (MoRPHine SULFATE INJ) 3 mg Q6H PRN IV 03/19/18 20:15 04/02/18 20:14 03/20/18 10:53 3 MG Physical Exam Date Time Temp Pulse Resp B/P (MAP) Pulse Ox O2 Delivery O2 Flow Rate FiO2 03/20/18 08:38 36.4 58 17 126/79 (95) 99 Room Air 03/20/18 07:57 Room Air 03/19/18 23:45 Room Air 03/19/18 23:25 36.5 69 14 123/79 (94) 99 Room Air 03/19/18 18:47 96 Room Air 03/19/18 18:47 36.5 71 14 137/86 Room Air 03/19/18 18:00 85 18 146/89 93 03/19/18 16:45 83 20 146/89 97 Nasal Cannula 2.0 03/19/18 14:30 91 16 149/81 98 Nasal Cannula 3.0 03/19/18 13:45 96 16 151/88 98 Room Air 03/19/18 13:26 89 On physical exam he is alert and oriented cooperative. He has reasonable strength detailed testing bilateral tremors. He does have some decreased sensation to his feet due to long-term diabetes and peripheral neuropathy but does have reasonable sensation to light touch and cold to the upper thighs. He has marked tension signs with straight leg raising bilaterally. Well-healed midline incision. Laboratory Results Last 24 Hours Test 03/19/18 13:20 03/19/18 19:26 03/19/18 20:58 03/20/18 06:18 Urine Color YELLOW Urine Appearance CLEAR Urine pH 5.5 Urine Specific [place] 1.020 Urine Protein NEG Urine Glucose (UA) 2+ Urine Ketones NEG Urine Occult Blood NEG Urine Nitrite NEG Urine Bilirubin NEG Urine Urobilinogen NEG Urine Leukocyte Esterase NEG Bedside Glucose 149 mg/dl 184 mg/dl Estimated Average Glucose 186 mg/dl Hemoglobin A1c 8.1 % Test 03/20/18 06:22 03/20/18 07:58 03/20/18 11:57 Hepatitis C Antibody Screen NEG Bedside Glucose 166 mg/dl 227 mg/dl Assessment & Plan Assessment severe spinal stenosis L2-3 with caudal migration of the massive disc herniation occupying bilateral lateral recesses. Plan at this time he has had a marked decline in status would like to consider surgical intervention. Would require removal of instrumentation at the L3-L4-L5 and S1 levels and extending the fusion to the to 3 level. We would try to perform this as soon as he is cleared for surgery.
[2018-03-20 13:42] VITALS: Ht 167.6 cm; Wt 96.9 kg
--- NOTE | 2018-03-20 14:15 | Anesthesiology Progress Note ---
Anesthesia Progress Note Date of Service Mar 20, 2018. Progress Notes The patient is a 62M scheduled for L3-S1 revision decompression and fusion by Dr. Cabezas. The patient has a history of SVT/afib s/p cardiac ablation, GUCCI with noncompliant BiPAP use, HTN, chronic pain syndrome, IBS, arthritis, DM, BPH , depression, and obesity. The patient currently has a loop recorder implant, and he states there have been no new episodes of afib/SVT in the last couple years. The patient has adequate functional status. An EKG showed NSR @ 70 bpm. The patient has received multiple general anesthetics without prior complications. The patient is an acceptable candidate for general anesthesia +/ - arterial line. A type and screen was ordered. All questions and concerns were addressed.
[2018-03-20 15:44] VITALS: BP 123/78; PULSE 57; TEMP 36.8; O2SAT 99
[2018-03-20 16:30] VITALS: O2SAT 99
[2018-03-20] MEDS: TAMSULOSIN HCL 0.4 MG CAP PO SCH (20:37)
[2018-03-20] MEDS: QUETIAPINE FUMARATE 200 MG TAB PO SCH (20:37)
--- NOTE | 2018-03-20 23:04 | Progress Note ---
Subjective Date of Service: Mar 20, 2018. Subjective Pt evaluation today including: conversation w/ patient, physical exam, lab review, review of studies, conversation w/ edi consultant, review of inpatient medication list Pain: moderate to severe low back pain PO Intake: poor Voiding: no voiding problems patient still in a great deal of pain discussed case with Dr. Cabezas, he recommends surgery, can perform on would require removal of hardware and new decompression and fusion for L2-3 patient agrees to surgery, however, need to work out insurance issues since his insurance was from [place] from surgical risk standpoint, he would be intermediate he is in NSR on EKG, BUN/Cr normal, CBC normal Problem List Medical Problems: (1) Intractable low back pain Status: Acute Review of Systems Musculoskeletal: + joint pain (severe low back pain) All Other Systems: Reviewed and Negative Medications Current Inpatient Medications Medications (Trade) Dose Ordered Sig/Shemar Route Start Time Stop Time Status Last Admin Dose Admin Acetaminophen (Tylenol Tab) 650 mg Q4H PRN PO 03/19/18 17:30 04/18/18 17:29 Magnesium Hydroxide (Milk Of Magnesia Susp) 30 ml Q6H PRN PO 03/19/18 17:30 04/18/18 17:29 Ondansetron HCl (Zofran Inj) 4 mg Q6H PRN IV 03/19/18 17:30 04/18/18 17:29 Insulin Aspart (novoLOG ASPART) SLIDING SCALE If C... ACHS SC 03/19/18 21:00 04/18/18 20:59 03/20/18 20:42 1 UNITS Glucose (Glucose 40% Gel) 15-30 GRAMS 15 GRAMS... UD PRN PO 03/19/18 17:30 04/18/18 17:29 Glucose (Glucose Chew Tab) 4-8 Tablets 4 Tabl... UD PRN PO 03/19/18 17:30 04/18/18 17:29 Dextrose (Dextrose 50% 50ML Syringe) 25-50ML 25ML FOR ... UD PRN IV 03/19/18 17:30 04/18/18 17:29 Glucagon (Glucagon Inj) 1 mg UD PRN SQ 03/19/18 17:30 04/18/18 17:29 Carbohydrates (Carbohydrates For Hypoglycemia) 15-30 GRAMS 15 grams if BSG 54-69... UD PRN PO 03/19/18 17:30 04/18/18 17:29 Atorvastatin Calcium (Lipitor Tab) 10 mg DAILY PO 03/20/18 09:00 04/19/18 08:59 03/20/18 08:52 10 MG Cyclobenzaprine HCl (Flexeril Tab) 10 mg TID PO 03/19/18 21:00 04/18/18 20:59 03/20/18 20:38 10 MG Diclofenac Sodium (Voltaren Tab) 75 mg BID PO 03/19/18 21:00 04/18/18 20:59 03/20/18 20:38 75 MG Duloxetine HCl (Cymbalta Cap) 60 mg DAILY PO 03/20/18 09:00 04/19/18 08:59 03/20/18 08:51 60 MG Gabapentin (Neurontin Tab) 1,200 mg TID PO 03/19/18 21:00 04/18/18 20:59 03/20/18 20:38 1,200 MG Propranolol HCl (Inderal Tab) 10 mg DAILY PO 03/20/18 09:00 04/19/18 08:59 03/20/18 08:52 10 MG Quetiapine Fumarate (seroQUEL TAB) 200 mg QPM PO 03/19/18 21:00 04/18/18 20:59 03/20/18 20:37 200 MG Tamsulosin HCl (Flomax Cap) 0.4 mg HS PO 03/19/18 21:00 04/18/18 20:59 03/20/18 20:37 0.4 MG Tramadol HCl (Ultram Tab) 50 mg Q6H PRN PO 03/19/18 17:30 04/18/18 17:29 03/20/18 20:37 50 MG Ketorolac Tromethamine (Toradol Inj) 30 mg Q6H PRN IV 03/19/18 17:30 03/24/18 17:29 03/20/18 20:37 30 MG Morphine Sulfate (MoRPHine SULFATE INJ) 3 mg Q6H PRN IV 03/19/18 20:15 04/02/18 20:14 03/20/18 17:18 3 MG Objective Vital Signs Date Time Temp Pulse Resp B/P (MAP) Pulse Ox O2 Delivery O2 Flow Rate FiO2 03/20/18 16:30 99 Room Air 03/20/18 15:44 36.8 57 16 123/78 (93) 99 Room Air 03/20/18 08:38 36.4 58 17 126/79 (95) 99 Room Air 03/20/18 07:57 Room Air 03/19/18 23:45 Room Air 03/19/18 23:25 36.5 69 14 123/79 (94) 99 Room Air Physical Exam General Appearance: no apparent distress, + obese Eyes: normal inspection, EOMI, sclerae normal ENT: normal ENT inspection, hearing grossly normal, pharynx normal Neck: supple, no adenopathy, no JVD, trachea midline Respiratory/Chest: chest non-tender, lungs clear, normal breath sounds, no respiratory distress, no accessory muscle use Cardiovascular: regular rate, rhythm, no edema, no gallop, no JVD, no murmur Abdomen: normal bowel sounds, non tender, soft, no organomegaly Extremities: no pedal edema, no calf tenderness, normal capillary refill, pelvis stable, + pertinent finding (severe low back pain, limited in movement) 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, alert, normal mood/affect, oriented x 3, + motor weakness, + sensory deficit Skin: normal color, warm/dry, no rash Laboratory Results Last 24 Hours Test 03/20/18 06:18 03/20/18 06:22 03/20/18 07:58 03/20/18 11:57 Estimated Average Glucose 186 mg/dl Hemoglobin A1c 8.1 % Hepatitis C Antibody Screen NEG Bedside Glucose 166 mg/dl 227 mg/dl Test 03/20/18 17:09 03/20/18 20:36 Bedside Glucose 213 mg/dl 173 mg/dl Assessment and Plan 62 y/o M who was admitted on 03/19 with intractable LBP LBP: CT and emergent MRI noted for severe disc herniation L2-3 Hx of fusion x2 with ortho in [place] d/w Dr Cabezas today, recommending surgery on 03/22 CM to determine insurance coverage prior to surgery Toradol, morphine EKG shows normal sinus rhythm, BUN/Cr stable, H/H stable would be intermediate cardiac risk but stable and can go for surgery, anesthesia consulted Afib/HTN: stable, states off of anticoagulation s/p ablation in 2014 continue Inderal DM: metformin only SSI PRN A1c pending BPH: continue home meds Depression: continue home meds Chronic pain syndrome: continue gabapentin Other: Full code DM AHA diet SCDs for DVT proph given possible OR tentatively plan for OR on 03/22
[2018-03-20 23:24] VITALS: BP 153/85; PULSE 67; TEMP 36.7; O2SAT 100
[2018-03-21] MEDS: MoRPHine SULFATE 4 MG/ML 1 ML CARP\\VIAL IV PRN ×2 (00:19→09:28)
[2018-03-21 07:13] VITALS: BP 130/75; PULSE 75; TEMP 36.5; O2SAT 96
[2018-03-21] MEDS: TRAMADOL HCL 50 MG TAB PO PRN (08:55)
[2018-03-21] MEDS: DICLOFENAC SOD EC 75 MG TABCR PO SCH ×2 (08:55→21:10)
[2018-03-21] MEDS: ATORVASTATIN 10 MG TAB PO SCH (08:55)
[2018-03-21] MEDS: PROPRANOLOL HCL 10 MG TAB PO SCH (08:55)
[2018-03-21] MEDS: CYCLOBENZAPRINE HCL 10 MG TAB PO SCH ×3 (08:55→21:10)
[2018-03-21] MEDS: DULOXETINE HCL 60 MG CAP PO SCH (08:56)
[2018-03-21] MEDS: GABAPENTIN 600 MG TAB PO SCH ×3 (08:56→21:09)
[2018-03-21] MEDS: INSULIN ASPART 100 UNITS/ML 3 ML PEN SC SCH ×4 (09:07→21:13)
[2018-03-21] MEDS ORDERED: HYDROmorphone INJ 2 MG/ML SYR/VIAL IV STA (12:49)
[2018-03-21 15:17] VITALS: BP 121/79; PULSE 64; TEMP 36.4; O2SAT 97
--- NOTE | 2018-03-21 15:21 | Progress Note ---
Progress Note Date of Service Mar 21, 2018. Progress Note At this time we need to cancel surgery for the a.m. We are hoping he can obtain some pain control with oral medications make arrangements for residency in [place] and proceed with surgery at a later date.
--- NOTE | 2018-03-21 15:41 | Progress Note ---
Subjective Date of Service: Mar 21, 2018. Subjective Pt evaluation today including: conversation w/ patient, physical exam, conversation w/ x ray consultant, review of inpatient medication list Pain: severe, radicular pain into right leg PO Intake: adequate Voiding: no voiding problems patient in severe pain, Morphine helping but not sufficiently changed to Dilaudid 1mg IV, more relief discussed with case management, surgery would not be covered by insurance he will not have surgery here will need to get pain controlled with oral pain medications option would be to become a resident of [place] and apply for medical assistance will discuss further with patient tomorrow, he is in too much pain today to be discharged Problem List Medical Problems: (1) Intractable low back pain Status: Acute Review of Systems Musculoskeletal: + joint pain (severe low back pain, right sided radicular pain ) All Other Systems: Reviewed and Negative Medications Current Inpatient Medications Medications (Trade) Dose Ordered Sig/Shemar Route Start Time Stop Time Status Last Admin Dose Admin Acetaminophen (Tylenol Tab) 650 mg Q4H PRN PO 03/19/18 17:30 04/18/18 17:29 Magnesium Hydroxide (Milk Of Magnesia Susp) 30 ml Q6H PRN PO 03/19/18 17:30 04/18/18 17:29 Ondansetron HCl (Zofran Inj) 4 mg Q6H PRN IV 03/19/18 17:30 04/18/18 17:29 Insulin Aspart (novoLOG ASPART) SLIDING SCALE If C... ACHS SC 03/19/18 21:00 04/18/18 20:59 03/21/18 13:19 5 UNITS Glucose (Glucose 40% Gel) 15-30 GRAMS 15 GRAMS... UD PRN PO 03/19/18 17:30 04/18/18 17:29 Glucose (Glucose Chew Tab) 4-8 Tablets 4 Tabl... UD PRN PO 03/19/18 17:30 04/18/18 17:29 Dextrose (Dextrose 50% 50ML Syringe) 25-50ML 25ML FOR ... UD PRN IV 03/19/18 17:30 04/18/18 17:29 Glucagon (Glucagon Inj) 1 mg UD PRN SQ 03/19/18 17:30 04/18/18 17:29 Carbohydrates (Carbohydrates For Hypoglycemia) 15-30 GRAMS 15 grams if BSG 54-69... UD PRN PO 03/19/18 17:30 04/18/18 17:29 Atorvastatin Calcium (Lipitor Tab) 10 mg DAILY PO 03/20/18 09:00 04/19/18 08:59 03/21/18 08:55 10 MG Cyclobenzaprine HCl (Flexeril Tab) 10 mg TID PO 03/19/18 21:00 04/18/18 20:59 03/21/18 13:17 10 MG Diclofenac Sodium (Voltaren Tab) 75 mg BID PO 03/19/18 21:00 04/18/18 20:59 03/21/18 08:55 75 MG Duloxetine HCl (Cymbalta Cap) 60 mg DAILY PO 03/20/18 09:00 04/19/18 08:59 03/21/18 08:56 60 MG Gabapentin (Neurontin Tab) 1,200 mg TID PO 03/19/18 21:00 04/18/18 20:59 03/21/18 13:17 1,200 MG Propranolol HCl (Inderal Tab) 10 mg DAILY PO 03/20/18 09:00 04/19/18 08:59 03/21/18 08:55 10 MG Quetiapine Fumarate (seroQUEL TAB) 200 mg QPM PO 03/19/18 21:00 04/18/18 20:59 03/20/18 20:37 200 MG Tamsulosin HCl (Flomax Cap) 0.4 mg HS PO 03/19/18 21:00 04/18/18 20:59 03/20/18 20:37 0.4 MG Tramadol HCl (Ultram Tab) 50 mg Q6H PRN PO 03/19/18 17:30 04/18/18 17:29 03/21/18 08:55 50 MG Ketorolac Tromethamine (Toradol Inj) 30 mg Q6H PRN IV 03/19/18 17:30 03/24/18 17:29 03/20/18 20:37 30 MG Morphine Sulfate (MoRPHine SULFATE INJ) 3 mg Q6H PRN IV 03/19/18 20:15 04/02/18 20:14 03/21/18 09:28 3 MG Hydromorphone HCl (Dilaudid Inj) 1 mg Q3H PRN IV 03/21/18 13:00 04/04/18 12:59 Objective Vital Signs Date Time Temp Pulse Resp B/P (MAP) Pulse Ox O2 Delivery O2 Flow Rate FiO2 03/21/18 15:17 36.4 64 16 121/79 (93) 97 Room Air 03/21/18 07:40 Room Air 03/21/18 07:13 36.5 75 20 130/75 (93) 96 Room Air 03/21/18 00:05 Room Air 03/20/18 23:24 36.7 67 18 153/85 (107) 100 Room Air 03/20/18 16:30 99 Room Air 03/20/18 15:44 36.8 57 16 123/78 (93) 99 Room Air Physical Exam General Appearance: no apparent distress, + obese Eyes: normal inspection, EOMI, sclerae normal ENT: normal ENT inspection, hearing grossly normal, pharynx normal Neck: supple, no adenopathy, no JVD, trachea midline Respiratory/Chest: chest non-tender, lungs clear, normal breath sounds, no respiratory distress, no accessory muscle use Cardiovascular: regular rate, rhythm, no edema, no gallop, no JVD, no murmur Abdomen: normal bowel sounds, non tender, soft, no organomegaly Extremities: normal inspection, no pedal edema, no calf tenderness, normal capillary refill, pelvis stable, + pertinent finding (cannot move lower back without pain, cannot move right leg without pain) 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 Cabezas and Dr. 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
[2018-03-21] MEDS: KETOROLAC TROMETHAMINE 30 MG/ML VIAL IV SCH ×2 (16:32→22:01)
[2018-03-21] MEDS: QUETIAPINE FUMARATE 200 MG TAB PO SCH (21:00)
[2018-03-21] MEDS: TAMSULOSIN HCL 0.4 MG CAP PO SCH (21:10)
[2018-03-21 23:23] VITALS: BP 146/79; PULSE 70; TEMP 36.6; O2SAT 100
[2018-03-22] MEDS: HYDROmorphone INJ 2 MG/ML SYR/VIAL IV PRN ×2 (01:47→05:30)
[2018-03-22] MEDS: KETOROLAC TROMETHAMINE 30 MG/ML VIAL IV SCH ×4 (03:31→21:00)
[2018-03-22 07:54] VITALS: BP 148/97; PULSE 72; TEMP 36.4; O2SAT 100
[2018-03-22] MEDS: OXYCODONE/ACETAMINOPHEN 10/325MG TAB PO PRN ×3 (09:30→19:45)
[2018-03-22] MEDS: PROPRANOLOL HCL 10 MG TAB PO SCH (09:31)
[2018-03-22] MEDS: DICLOFENAC SOD EC 75 MG TABCR PO SCH ×2 (09:31→21:00)
[2018-03-22] MEDS: GABAPENTIN 600 MG TAB PO SCH ×3 (09:31→20:59)
[2018-03-22] MEDS: ATORVASTATIN 10 MG TAB PO SCH (09:31)
[2018-03-22] MEDS: DULOXETINE HCL 60 MG CAP PO SCH (09:31)
[2018-03-22] MEDS: CYCLOBENZAPRINE HCL 10 MG TAB PO SCH ×3 (09:31→20:59)
[2018-03-22] MEDS: INSULIN ASPART 100 UNITS/ML 3 ML PEN SC SCH ×4 (09:36→21:08)
--- NOTE | 2018-03-22 14:28 | Progress Note ---
Subjective Date of Service: Mar 22, 2018. Subjective Pt evaluation today including: conversation w/ patient, conversation w/ family (cousin), physical exam, review of inpatient medication list Pain: moderate PO Intake: adequate Voiding: no voiding problems patient feeling a little better, pain moderately controlled this morning on Percocet 10/325mg still with severe, shooting radicular pain in right leg if he moves the wrong way he plans to reside with his cousin to establish residence in [place], plans to apply for medical assistance participating in PT/OT today, motivated to get out of the hospital revisited in the evening, discussed starting some longer acting narcotics for more steady pain control Problem List Medical Problems: (1) Intractable low back pain Status: Acute Review of Systems Musculoskeletal: + joint pain (moderate back pain) All Other Systems: Reviewed and Negative Medications Current Inpatient Medications Medications (Trade) Dose Ordered Sig/Shemar Route Start Time Stop Time Status Last Admin Dose Admin Acetaminophen (Tylenol Tab) 650 mg Q4H PRN PO 03/19/18 17:30 04/18/18 17:29 Magnesium Hydroxide (Milk Of Magnesia Susp) 30 ml Q6H PRN PO 03/19/18 17:30 04/18/18 17:29 Ondansetron HCl (Zofran Inj) 4 mg Q6H PRN IV 03/19/18 17:30 04/18/18 17:29 Insulin Aspart (novoLOG ASPART) SLIDING SCALE If C... ACHS SC 03/19/18 21:00 04/18/18 20:59 03/22/18 13:03 5 UNITS Glucose (Glucose 40% Gel) 15-30 GRAMS 15 GRAMS... UD PRN PO 03/19/18 17:30 04/18/18 17:29 Glucose (Glucose Chew Tab) 4-8 Tablets 4 Tabl... UD PRN PO 03/19/18 17:30 04/18/18 17:29 Dextrose (Dextrose 50% 50ML Syringe) 25-50ML 25ML FOR ... UD PRN IV 03/19/18 17:30 04/18/18 17:29 Glucagon (Glucagon Inj) 1 mg UD PRN SQ 03/19/18 17:30 04/18/18 17:29 Carbohydrates (Carbohydrates For Hypoglycemia) 15-30 GRAMS 15 grams if BSG 54-69... UD PRN PO 03/19/18 17:30 04/18/18 17:29 Atorvastatin Calcium (Lipitor Tab) 10 mg DAILY PO 03/20/18 09:00 04/19/18 08:59 03/22/18 09:31 10 MG Cyclobenzaprine HCl (Flexeril Tab) 10 mg TID PO 03/19/18 21:00 04/18/18 20:59 03/22/18 13:31 10 MG Diclofenac Sodium (Voltaren Tab) 75 mg BID PO 03/19/18 21:00 04/18/18 20:59 03/22/18 09:31 75 MG Duloxetine HCl (Cymbalta Cap) 60 mg DAILY PO 03/20/18 09:00 04/19/18 08:59 03/22/18 09:31 60 MG Gabapentin (Neurontin Tab) 1,200 mg TID PO 03/19/18 21:00 04/18/18 20:59 03/22/18 13:30 1,200 MG Propranolol HCl (Inderal Tab) 10 mg DAILY PO 03/20/18 09:00 04/19/18 08:59 03/22/18 09:31 10 MG Quetiapine Fumarate (seroQUEL TAB) 200 mg QPM PO 03/19/18 21:00 04/18/18 20:59 03/20/18 20:37 200 MG Tamsulosin HCl (Flomax Cap) 0.4 mg HS PO 03/19/18 21:00 04/18/18 20:59 03/21/18 21:10 0.4 MG Tramadol HCl (Ultram Tab) 50 mg Q6H PRN PO 03/19/18 17:30 04/18/18 17:29 03/21/18 08:55 50 MG Morphine Sulfate (MoRPHine SULFATE INJ) 3 mg Q6H PRN IV 03/19/18 20:15 04/02/18 20:14 03/21/18 09:28 3 MG Hydromorphone HCl (Dilaudid Inj) 1 mg Q3H PRN IV 03/21/18 13:00 04/04/18 12:59 03/22/18 05:30 1 MG Ketorolac Tromethamine (Toradol Inj) 30 mg Q6H IV 03/21/18 16:00 03/26/18 15:59 03/22/18 09:30 30 MG Oxycodone/ Acetaminophen (Percocet 10-325MG Tab) 1 tab Q4H PRN PO 03/21/18 15:45 04/04/18 15:44 03/22/18 13:31 1 TAB Objective Vital Signs Date Time Temp Pulse Resp B/P (MAP) Pulse Ox O2 Delivery O2 Flow Rate FiO2 03/22/18 07:54 36.4 72 17 148/97 (114) 100 Room Air 03/22/18 07:30 Room Air 03/22/18 00:44 Room Air 03/21/18 23:23 36.6 70 16 146/79 (101) 100 Room Air 03/21/18 16:00 Room Air 03/21/18 15:17 36.4 64 16 121/79 (93) 97 Room Air Physical Exam General Appearance: + mild distress (when his back pain flares up), + obese Eyes: normal inspection, EOMI, sclerae normal ENT: normal ENT inspection, hearing grossly normal, pharynx normal Neck: supple, no adenopathy, no JVD, trachea midline Respiratory/Chest: chest non-tender, lungs clear, normal breath sounds, no respiratory distress, no accessory muscle use Cardiovascular: regular rate, rhythm, no edema, no gallop, no JVD, no murmur Abdomen: normal bowel sounds, non tender, soft, no organomegaly Extremities: normal inspection, no pedal edema, no calf tenderness, pelvis stable, + pertinent finding (severe pain with twisting or flexion of lower pain) 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, no motor/sensory deficits, alert, normal mood/affect, oriented x 3 Skin: normal color, warm/dry, no rash Laboratory Results Last 24 Hours Test 03/21/18 17:33 03/21/18 20:35 03/22/18 08:05 03/22/18 12:12 Bedside Glucose 196 mg/dl 169 mg/dl 198 mg/dl 183 mg/dl Assessment and Plan 62 y/o M who was admitted on 03/19 with intractable LBP Severe low back pain with radiculopathy down right leg: MRI noted for severe disc herniation L2-3 Hx of fusion x 2 with ortho in [place] patient cannot have surgery here currently because his insurance would not cover surgery, insurance based out of [place] planning to become a resident of [place] and apply for medical assistance pain control plan with Oxycodone SR 15mg BID and Percocet 10/325mg q4 PRN discussed steroids with him, he refuses because he said that steroids lead to his MRSA infection will use Toradol IV for now, plan to use ibuprofen already on Neurontin 1200mg TID and Flexeril 10mg TID PRN PT/OT, patient cooperative and motivated, will need a rolling walker on discharge Afib/HTN: stable, states off of anticoagulation s/p ablation in 2014 continue Inderal, vitals stable DM: metformin only SSI PRN A1c pending BPH: continue home meds Depression: continue home meds Chronic pain syndrome: continue gabapentin Other: Full code DM AHA diet SCDs for DVT proph given possible OR try to discharge tomorrow if pain is controlled
[2018-03-22 15:58] VITALS: O2SAT 100
[2018-03-22 16:02] VITALS: BP 154/97; PULSE 61; TEMP 36.4; O2SAT 97
[2018-03-22] MEDS ORDERED: OXYCODONE HCL 15 MG TABCR (OXYCONTIN) PO SCH (17:00)
[2018-03-22] MEDS: QUETIAPINE FUMARATE 200 MG TAB PO SCH (20:59)
[2018-03-22] MEDS: TAMSULOSIN HCL 0.4 MG CAP PO SCH (20:59)
[2018-03-22 23:41] VITALS: BP 160/91; PULSE 64; TEMP 36.7; O2SAT 96
[2018-03-23] MEDS: KETOROLAC TROMETHAMINE 30 MG/ML VIAL IV SCH ×5 (04:10→21:38)
[2018-03-23 04:13] VITALS: BP 161/100; PULSE 74
[2018-03-23 06:57] VITALS: TEMP 36.6; O2SAT 99
[2018-03-23] MEDS: OXYCODONE/ACETAMINOPHEN 10/325MG TAB PO PRN (07:00)
[2018-03-23] MEDS ORDERED: OXYCODONE HCL 15 MG TABCR (OXYCONTIN) PO SCH (08:00)
[2018-03-23 08:29] VITALS: BP 144/93
[2018-03-23] MEDS: CYCLOBENZAPRINE HCL 10 MG TAB PO SCH ×3 (09:30→20:25)
[2018-03-23] MEDS: PROPRANOLOL HCL 10 MG TAB PO SCH (10:06)
[2018-03-23] MEDS: INSULIN ASPART 100 UNITS/ML 3 ML PEN SC SCH ×4 (10:09→21:41)
[2018-03-23] MEDS: GABAPENTIN 600 MG TAB PO SCH ×3 (10:51→20:26)
[2018-03-23] MEDS: DULOXETINE HCL 60 MG CAP PO SCH (10:51)
[2018-03-23] MEDS: ATORVASTATIN 10 MG TAB PO SCH (10:51)
--- NOTE | 2018-03-23 15:13 | Progress Note ---
Subjective Date of Service: Mar 23, 2018. Subjective Pt evaluation today including: conversation w/ patient, conversation w/ family , physical exam, review of inpatient medication list Pain: severe pain, radicular pain in right leg PO Intake: adequate Voiding: no voiding problems patient says that the Oxycontin ER not helping much, said that we would increase frequency can still use Percocet this morning the patient was sound asleep at 0900 so the long acting Oxycontin not given, Flexeril held as well he received Percocet at 0700 and he said he really did not sleep well last night due to pain talked with his family at the bedside he and family know that goal is not complete pain relief, just to make things tolerable for discharge Problem List Medical Problems: (1) Intractable low back pain Status: Acute Review of Systems Musculoskeletal: + joint pain (low back pain, radicular pain in right leg) All Other Systems: Reviewed and Negative Medications Current Inpatient Medications Medications (Trade) Dose Ordered Sig/Shemar Route Start Time Stop Time Status Last Admin Dose Admin Acetaminophen (Tylenol Tab) 650 mg Q4H PRN PO 03/19/18 17:30 04/18/18 17:29 Magnesium Hydroxide (Milk Of Magnesia Susp) 30 ml Q6H PRN PO 03/19/18 17:30 04/18/18 17:29 Ondansetron HCl (Zofran Inj) 4 mg Q6H PRN IV 03/19/18 17:30 04/18/18 17:29 Insulin Aspart (novoLOG ASPART) SLIDING SCALE If C... ACHS SC 03/19/18 21:00 04/18/18 20:59 03/23/18 13:22 8 UNITS Glucose (Glucose 40% Gel) 15-30 GRAMS 15 GRAMS... UD PRN PO 03/19/18 17:30 04/18/18 17:29 Glucose (Glucose Chew Tab) 4-8 Tablets 4 Tabl... UD PRN PO 03/19/18 17:30 04/18/18 17:29 Dextrose (Dextrose 50% 50ML Syringe) 25-50ML 25ML FOR ... UD PRN IV 03/19/18 17:30 04/18/18 17:29 Glucagon (Glucagon Inj) 1 mg UD PRN SQ 03/19/18 17:30 04/18/18 17:29 Carbohydrates (Carbohydrates For Hypoglycemia) 15-30 GRAMS 15 grams if BSG 54-69... UD PRN PO 03/19/18 17:30 04/18/18 17:29 Atorvastatin Calcium (Lipitor Tab) 10 mg DAILY PO 03/20/18 09:00 04/19/18 08:59 03/22/18 09:31 10 MG Cyclobenzaprine HCl (Flexeril Tab) 10 mg TID PO 03/19/18 21:00 04/18/18 20:59 03/23/18 13:22 10 MG Duloxetine HCl (Cymbalta Cap) 60 mg DAILY PO 03/20/18 09:00 04/19/18 08:59 03/22/18 09:31 60 MG Gabapentin (Neurontin Tab) 1,200 mg TID PO 03/19/18 21:00 04/18/18 20:59 03/23/18 13:22 1,200 MG Propranolol HCl (Inderal Tab) 10 mg DAILY PO 03/20/18 09:00 04/19/18 08:59 03/23/18 10:06 10 MG Quetiapine Fumarate (seroQUEL TAB) 200 mg QPM PO 03/19/18 21:00 04/18/18 20:59 03/22/18 20:59 200 MG Tamsulosin HCl (Flomax Cap) 0.4 mg HS PO 03/19/18 21:00 04/18/18 20:59 03/22/18 20:59 0.4 MG Tramadol HCl (Ultram Tab) 50 mg Q6H PRN PO 03/19/18 17:30 04/18/18 17:29 03/21/18 08:55 50 MG Morphine Sulfate (MoRPHine SULFATE INJ) 3 mg Q6H PRN IV 03/19/18 20:15 04/02/18 20:14 03/21/18 09:28 3 MG Hydromorphone HCl (Dilaudid Inj) 1 mg Q3H PRN IV 03/21/18 13:00 04/04/18 12:59 03/22/18 05:30 1 MG Ketorolac Tromethamine (Toradol Inj) 30 mg Q6H IV 03/21/18 16:00 03/26/18 15:59 03/23/18 10:56 30 MG Oxycodone/ Acetaminophen (Percocet 10-325MG Tab) 1 tab Q4H PRN PO 03/21/18 15:45 04/04/18 15:44 03/23/18 07:00 1 TAB Oxycodone HCl (Oxycontin Tab) 15 mg Q12H PO 03/23/18 08:00 04/06/18 07:59 Objective Vital Signs Date Time Temp Pulse Resp B/P (MAP) Pulse Ox O2 Delivery O2 Flow Rate FiO2 03/23/18 09:09 12 03/23/18 08:29 144/93 (110) 03/23/18 07:53 Room Air 03/23/18 06:57 36.6 21 99 Room Air 03/23/18 04:13 74 161/100 (120) 03/22/18 23:41 36.7 64 16 160/91 (114) 96 Room Air 03/22/18 19:45 Room Air 03/22/18 16:02 36.4 61 16 154/97 (116) 97 Room Air 03/22/18 15:58 100 Room Air Physical Exam General Appearance: no apparent distress, + obese Eyes: normal inspection, EOMI, sclerae normal ENT: normal ENT inspection, hearing grossly normal, pharynx normal Neck: supple, no adenopathy, no JVD, trachea midline Respiratory/Chest: chest non-tender, lungs clear, normal breath sounds, no respiratory distress, no accessory muscle use Cardiovascular: regular rate, rhythm, no edema, no gallop, no JVD, no murmur Abdomen: normal bowel sounds, non tender, soft, no organomegaly Extremities: normal inspection, no pedal edema, no calf tenderness, pelvis stable, + pertinent finding (decreased ROM of lower back, sharp, shooting radicular pain down right leg with movement) 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, no motor/sensory deficits, alert, normal mood/affect, oriented x 3 Skin: normal color, warm/dry, no rash Laboratory Results Last 24 Hours Test 03/22/18 17:09 03/22/18 20:47 03/23/18 08:01 03/23/18 12:20 Bedside Glucose 221 mg/dl 195 mg/dl 166 mg/dl 254 mg/dl Assessment and Plan 62 y/o M who was admitted on 03/19 with intractable LBP Severe low back pain with radiculopathy down right leg: MRI noted for severe disc herniation L2-3 Hx of fusion x 2 with ortho in [place] patient cannot have surgery here currently because his insurance would not cover surgery, insurance based out of [place] planning to become a resident of [place] and apply for medical assistance pain control plan with Oxycodone SR 15mg q8 and Percocet 10/325mg q4 PRN discussed steroids with him, he refuses because he said that steroids lead to his MRSA infection will use Toradol IV for now, plan to use ibuprofen already on Neurontin 1200mg TID and Flexeril 10mg TID PRN PT/OT, patient cooperative and motivated, will need a rolling walker on discharge still in too much pain for discharge Afib/HTN: stable, states off of anticoagulation s/p ablation in 2014 continue Inderal, vitals stable DM: metformin only SSI PRN A1c pending BPH: continue home meds Depression: continue home meds Chronic pain syndrome: continue gabapentin Other: Full code DM AHA diet SCDs for DVT proph given possible OR try to discharge tomorrow if pain is controlled
[2018-03-23 15:38] VITALS: BP 135/79; PULSE 70; TEMP 36.7; O2SAT 99
[2018-03-23] MEDS: OXYCODONE HCL 15 MG TABCR (OXYCONTIN) PO SCH (18:18)
[2018-03-23] MEDS: TRAMADOL HCL 50 MG TAB PO PRN (19:12)
[2018-03-23] MEDS: TAMSULOSIN HCL 0.4 MG CAP PO SCH (20:25)
[2018-03-23] MEDS: QUETIAPINE FUMARATE 200 MG TAB PO SCH (20:26)
[2018-03-23 23:22] VITALS: BP 154/89; PULSE 72; TEMP 36.7; O2SAT 99
[2018-03-24] MEDS: OXYCODONE HCL 15 MG TABCR (OXYCONTIN) PO SCH (00:04)
[2018-03-24] MEDS: OXYCODONE/ACETAMINOPHEN 10/325MG TAB PO PRN ×2 (01:57→06:00)
[2018-03-24] MEDS: KETOROLAC TROMETHAMINE 30 MG/ML VIAL IV SCH ×2 (04:05→10:41)
[2018-03-24 06:03] VITALS: BP 122/85; PULSE 65; TEMP 36.4; O2SAT 98
[2018-03-24 06:25] LABS: BASO % 0.9 %; BASO ABS # 0.06 K/uL (0-0.2); EOS % 6.9 %; EOS ABS # 0.46 K/uL (0-0.5); HEMATOCRIT 41.5 % (42-52); HEMOGLOBIN 14.8 g/dL (14.0-18.0); IG# 0.03 K/uL (0.00-0.02); LYMPH % 28.5 %; LYMPH ABS # 1.89 K/uL (1.2-3.4); MEAN CELL VOLUME 88.7 fL (80-100); MEAN CORPUSCULAR HEMOGLOBIN 31.6 pg (25-34); MEAN CORPUSCULAR HGB CONC 35.7 g/dl (32-36); MEAN PLATELET VOLUME 10.9 fL (7.4-10.4); MONO % 10.6 %; NEUT % 52.6 %; NEUT ABS # 3.49 K/uL (1.4-6.5); PLATELET COUNT 180 K/uL (130-400); RED CELL DISTRIBUTION WIDTH CV 12.8 % (11.5-14.5); RED CELL DISTRIBUTION WIDTH SD 41.1 fL (36.4-46.3); WHITE BLOOD COUNT 6.63 K/uL (4.8-10.8)
[2018-03-24 07:01] LABS: CALCIUM 8.9 mg/dl (8.5-10.1); CREATININE 1.28 mg/dl (0.60-1.40); POTASSIUM 4.8 mmol/L (3.5-5.1)
[2018-03-24] MEDS ORDERED: OXYCODONE HCL 15 MG TABCR (OXYCONTIN) PO SCH (08:00)
[2018-03-24] MEDS: TRAMADOL HCL 50 MG TAB PO PRN (08:28)
[2018-03-24] MEDS: GABAPENTIN 600 MG TAB PO SCH ×2 (08:29→13:33)
[2018-03-24] MEDS: CYCLOBENZAPRINE HCL 10 MG TAB PO SCH ×2 (08:30→13:33)
[2018-03-24] MEDS: DULOXETINE HCL 60 MG CAP PO SCH (08:30)
[2018-03-24] MEDS: PROPRANOLOL HCL 10 MG TAB PO SCH (08:31)
[2018-03-24] MEDS: ATORVASTATIN 10 MG TAB PO SCH (08:31)
[2018-03-24] MEDS: INSULIN ASPART 100 UNITS/ML 3 ML PEN SC SCH ×2 (09:24→13:38)
[2018-03-24] MEDS ORDERED: OXYSR15 PO (13:07)
[2018-03-24] MEDS ORDERED: OXYC-594 PO (13:07)
--- NOTE | 2018-03-24 13:17 | Discharge Instructions ---
Discharge Instructions Date of Service Mar 24, 2018. Admission Reason for Admission: Intractable pain due to disc herniation Discharge Discharge Diagnosis / Problem: Intractable pain due to disc herniation Discharge Goals Goal(s): Decrease discomfort, Improve function Activity Recommendations Activity Limitations: per Instructions/Follow-up section Lifting Limitations: no more than 5 pounds Exercise/Sports Limitations: as tolerated Shower/Bathe: no limitations Driving or Machine Use: no driving while on narcotics . Instructions / Follow-Up Instructions / Follow-Up Medications: - OXYCONTIN: 15mg three times a day for continuous pain relief, try to wean back to twice a day in the next few days and then maybe just at night - PERCOCET: 10/325mg, can take every 4 hours as needed but try to use less often if possible NARCOTICS, DO NOT TAKE MORE THAN PRESCRIBED Intractable low back pain and right leg radicular pain due to disc herniation for now, pain control is only option while awaiting medical assistance approval use Oxycontin 15mg TID and Percocet PRN, please cut back on dosing as pain allows for instance, if pain is controlled in the afternoon and/or if you are sleepy , don't take additional narcotics, wait until the evening continue to use the Flexeril and Neurontin which you were already taking for neuropathic and muscle pain goal for pain is not zero because that is likely not possible follow up [facility] with Dr. Felder on MonMarch 28 at 2:00 pm will ultimately need to follow up with Dr. Cabezas, [facility], once you have medical assistance Current Hospital Diet Patient's current hospital diet: Diabetes Type 2 Diet Discharge Diet Recommended Diet: Diabetes Type 2 Diet Pending Studies Studies pending at discharge: no Laboratory Results Hemoglobin A1c Test 03/20/18 06:18 Range/Units Estimated Average Glucose 186 mg/dl Hemoglobin A1c 8.1 H 4.5-5.6 % Medical Emergencies . Who to Call and When: Medical Emergencies: If at any time you feel your situation is an emergency, please call 911 immediately. . Non-Emergent Contact Non-Emergency issues call your: Primary Care Provider Call Non-Emergent contact if: you have a fever, your pain is not controlled, your pain is worsening, your pain is concerning you, you have any medication questions . . "Provider Documentation" section prepared by Nioks Mcclelland. . [place] Drug Monitoring Program Search Results: no issues identified
[2018-03-24 13:42] VITALS: BP 122/85; PULSE 65; TEMP 36.4; O2SAT 98
--- NOTE | 2018-03-24 14:15 | Discharge Summary ---
Discharge Summary Date of Service Mar 24, 2018. Discharge Summary Admission Date: Mar 19, 2018 at 17:24 Discharge Date: Mar 24, 2018 Discharge Disposition: Home Principal Diagnosis: Intractable low back pain due to disc herniation Problems/Secondary Diagnoses: Obesity DM type II Chronic pain neuropathy Procedures: none Consultations: Orthopedic surgery Medication Reconciliation New Medications: Oxycodone HCl (Oxycontin) 15 Mg Tabcr 15 MG PO Q8H, #90 TABS 0 Refills Oxycodone/Acetaminophen 10MG/325MG (Oxycodone/Acetaminophen 10MG/325MG) 1 Tab Tab 1 TAB PO Q4H PRN for Pain, #90 TAB 0 Refills Continued Medications: Atorvastatin (Lipitor) 10 Mg Tab 10 MG PO DAILY, TAB Cyclobenzaprine Hcl (Flexeril) 10 Mg Tab 10 MG PO TID, #21 TAB Diclofenac (Voltaren) 75 Mg Tabcr 75 MG PO BID, TAB WITH FOOD Duloxetine HCl (Cymbalta) 60 Mg Cap 60 MG PO DAILY Gabapentin (Gabapentin) 600 Mg Tab 1200 MG PO TID Metformin Hcl (Glucophage) 1,000 Mg Tab 1000 MG PO BID, TAB Propranolol (Inderal) 10 Mg Tab 10 MG PO DAILY, TAB Quetiapine Fumarate (Seroquel) 100 Mg Tab 200 MG PO QPM, TAB Tamsulosin Hcl (Flomax) 0.4 Mg Cap 0.4 MG PO HS, CAP Discontinued Medications: Tramadol (Ultram) 50 Mg Tab 50 MG PO Q6H PRN for Pain, TAB Discharge Exam Patient feeling better, pain controlled reasonably, no IV narcotics required in 48 hours. Long talk with patient and his cousin at the bedside about discharge plans. They have started the process of establishing residence in [place] and will then apply for medical assistance. Knows to follow up at [facility] on 03/28. Review of Systems: Constitutional: No fever, No chills, No sweats, No weight loss, No weakness , No fatigue, No problem reported Eyes: No worsening of vision, No eye pain, No redness, No discharge, No diplopia, No problem reported ENT: No hearing loss, No unusual epistaxis, No nasal symptoms, No sore throat, No tinnitus, No dental problems, No trouble swallowing, No problem reported Respiratory: No cough, No sputum, No wheezing, No shortness of breath, No dyspnea on exertion, No dyspnea at rest, No hemoptysis, No problem reported Cardiovascular: No chest pain, No orthopnea, No PND, No edema, No claudication, No palpitations, No problem reported Abdomen: No pain, No nausea, No vomiting, No diarrhea, No constipation, No GI bleeding, No problem reported Musculoskeletal: + joint pain (low back pain and right sided radicular pain to the knee), + muscle pain (bilateral paraspinal pain), No swelling, No calf pain Genitourinary - Male: No hematuria, No dysuria, No urinary frequency, No urinary urgency Neurologic: No memory loss, No paralysis, No weakness, No numbness/tingling , No vertigo, No balance problems, No problem reported Psychiatric: No depression symptoms, No anhedonism, No anxiety, No insomnia , No substance abuse, No problem reported Endocrine: No fatigue, No excessive thirst, No excessive urination, No problem reported Hematologic / Lymphatic: No abnormal bleeding/bruising, No clotting problems , No swollen lymph nodes, No night sweats, No problem reported Integumentary: No rash, No itch, No new/changing skin lesions, No color change, No bleeding, No problem reported Physical Exam: General Appearance: no apparent distress, + obese Eyes: normal inspection, EOMI, sclerae normal ENT: normal ENT inspection, hearing grossly normal, pharynx normal Neck: supple, no adenopathy, no JVD, trachea midline Respiratory/Chest: chest non-tender, lungs clear, normal breath sounds, no respiratory distress, no accessory muscle use Cardiovascular: regular rate, rhythm, no edema, no gallop, no JVD, no murmur , normal peripheral pulses Abdomen / GI: normal bowel sounds, non tender, soft, no organomegaly Extremities: normal inspection, no calf tenderness, normal capillary refill , no pedal edema, pelvis stable, + pertinent finding (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, decreased ROM due to sharp right sided radicular pain) Neurologic/Psychiatric: 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, no motor/sensory deficits , alert, normal mood/affect, normal reflexes, oriented x 3 Skin: normal color, warm/dry, no rash Lymphatic: no adenopathy Hospital Course 62 y/o M who was admitted on 03/19 with intractable LBP Severe low back pain with radiculopathy down right leg: MRI noted for severe disc herniation L2-3 Hx of fusion x 2 with ortho in [place] patient cannot have surgery here currently because his insurance would not cover surgery, insurance based out of [place] planning to become a resident of [place] and apply for medical assistance pain control plan with Oxycodone SR 15mg q8 and Percocet 10/325mg q4 PRN, no IV narcotics in over 48 hours working well, encouraged him to try to taper back on narcotics as allowed he has been educated by therapy on how to properly sit and stand, knows to not twist, lift anything heavier than 5 pounds discussed steroids with him, he refuses because he said that steroids lead to his MRSA infection continue Voltaren on discharge already on Neurontin 1200mg TID and Flexeril 10mg TID PRN PT/OT, patient cooperative and motivated, will need a rolling walker on discharge Afib/HTN: stable, states off of anticoagulation s/p ablation in 2014 continue Inderal, vitals stable DM: metformin, diabetic diet BPH: continue home meds Depression: continue home meds Chronic pain syndrome: continue gabapentin Other: Full code DM AHA diet SCDs for DVT proph given possible OR Total Time Spent: Greater than 30 minutes This includes examination of the patient, discharge planning, medication reconciliation, and communication with other providers. Discharge Instructions Please refer to the electronic Patient Visit Report (Discharge Instructions) for additional information. Follow-Up Dr. Felder at [facility] on 03/28 Additional Copies To Jacqueline Felder M.D.
== END 2018-03-24 14:43 | disposition home or self-care (01) | DRG 552 ==
LOC: EDSEX 09:55 → EDBD 09:55 → C.EDB 09:57 → C.3E 17:24 → ENRESERV 17:46
PROVIDERS: ADMIT Family Medicine; ATTEND Internal Medicine
DX: M51.16 Intervertebral disc disorders with radiculopathy, lumbar region (principal); M48.061 Spinal stenosis, lumbar region without neurogenic claudication; Z53.8 Procedure and treatment not carried out for other reasons; E11.9 Type 2 diabetes mellitus without complications; G89.4 Chronic pain syndrome; I10 Essential (primary) hypertension; N40.0 Benign prostatic hyperplasia without lower urinary tract symptoms; F32.9 Major depressive disorder, single episode, unspecified; E66.9 Obesity, unspecified; G47.33 Obstructive sleep apnea (adult) (pediatric); Z91.19 Patient's noncompliance with other medical treatment and regimen; Z79.899 Other long term (current) drug therapy; Z79.84 Long term (current) use of oral hypoglycemic drugs; Z68.34 Body mass index [BMI] 34.0-34.9, adult; Z98.1 Arthrodesis status; Z86.79 Personal history of other diseases of the circulatory system; Z98.890 Other specified postprocedural states; Z82.49 Family history of ischemic heart disease and other diseases of the circulatory system

== ENCOUNTER 2018-03-27 17:01 | Emergency (ER) | payer OTHER ==
[~2018-03-27] VITALS: Ht 167.6 cm; Wt 97.0 kg
[~2018-03-27 17:01] MED LIST: ATOR10TA82 PO; CYCL10TA6 PO; CYM/60 PO; DICL-201 PO; METF1000 PO; NRN600 PO; OXYC-594 PO; OXYSR15 PO; PROP10TA7 PO; QUET1TAB34 PO; TAMS0.4C38 PO
[2018-03-27 17:05] VITALS: TEMP 36.8
[2018-03-27] MEDS ORDERED: SODIUM CHLORIDE 0.9% 1000ML 500 ML IV ONE (17:21)
--- NOTE | 2018-03-27 17:29 | EMERGENCY ROOM VISIT NOTE ---
History Report prepared by Tolu: Candice Gallagher Under the Supervision of: Dr. Margarito Nichols M.D. First contact with patient: 17:11 Chief Complaint: WEAKNESS Stated Complaint: LETHARGIC,DROPPING THINGS,LETHARGIC History of Present Illness The patient is a 62 year old male who presents to the Emergency Room with complaints of constant lethargy beginning yesterday. He is accompanied by his cousin, who notes the patient was discharged 3 days ago following admittance for low back pain. The patient notes he is still experiencing constant back pain , R flank pain, and bilateral leg pain. The cousin reports she noted the patient sweating in his sleep yesterday, and that he was lethargic and not making much sense upon waking up from a nap. She states he has remained sleepy, and was unable to grasp his fork and cup during lunch today. The patient notes he is also experiencing some intermittent twitching. The cousin mentions the patient last had OxyContin yesterday morning, and she has not given him anymore as she is afraid that it was contributing to his lethargy. Awake now. The patient denies any nausea or fevers. His cousin notes he has had all his usual medications lately, and his BP and blood sugar have been within his usual range when checking at home. He notes Dr. Cabezas of [facility] recommended back surgery, but he needs to wait for his new insurance to cover it as he has recently moved from [place]. The patient notes a history of spinal fusions, in 2011 and 2015. His cousin notes they came into the ED at the recommended of a nurse who called before the patient's scheduled FU appointment tomorrow. Source of History: patient, family (cousin) Onset: yesterday Position: head Quality: other (lethargy) Timing: constant Associated Symptoms: + back pain (low), No fevers, No nausea Note: Associated symptom: difficulty grasping objects, intermittent twitching, bilateral leg pain Review of Systems See HPI for pertinent positives and negatives. A total of ten systems were reviewed and were otherwise negative. Past Medical & Surgical Medical Problems: (1) Arthritis (2) Diabetes (3) HTN (hypertension) (4) Kidney stone (5) MRSA (methicillin resistant Staphylococcus aureus) (6) Plantar fasciitis Surgical Problems: (1) History of spinal fusion (2) Hx of cholecystectomy Family History FH: diabetes mellitus FH: gallbladder disease Social History Smoking Status: Never Smoker Smokeless Tobacco Use: No Alcohol Use: occasionally Drug Use: none Housing Status: lives with family Occupation Status: unemployed Current/Historical Medications Scheduled Atorvastatin (Lipitor), 10 MG PO QAM Cyclobenzaprine Hcl (Flexeril), 10 MG PO TID Diclofenac (Voltaren), 75 MG PO BID Duloxetine HCl (Cymbalta), 60 MG PO DAILY Gabapentin (Gabapentin), 1,200 MG PO TID Metformin Hcl (Glucophage), 1,000 MG PO BID Oxycodone HCl (Oxycontin), 15 MG PO Q8H Propranolol (Inderal), 10 MG PO DAILY Quetiapine Fumarate (Seroquel), 200 MG PO QPM Tamsulosin Hcl (Flomax), 0.4 MG PO HS Scheduled PRN Oxycodone/Acetaminophen 10MG/325MG (Oxycodone/Acetaminophen 10MG/325MG), 1 TAB PO Q4H PRN for Pain Allergies Coded Allergies: No Known Allergies (Unverified , 03/27/18) Physical Exam Vital Signs Date Time Temp Pulse Resp B/P (MAP) Pulse Ox O2 Delivery O2 Flow Rate FiO2 03/27/18 19:19 16 129/84 96 03/27/18 17:55 65 16 132/79 96 Room Air 03/27/18 17:47 76 03/27/18 17:43 98 Room Air 03/27/18 17:05 36.8 73 17 114/74 98 Room Air Physical Exam GENERAL: Awake, alert, well-appearing, in no acute distress HENT: Normocephalic, atraumatic. Oropharynx unremarkable. EYES: Normal conjunctiva. Sclera non-icteric. NECK: Supple. No nuchal rigidity. RESPIRATORY: Clear to auscultation. No wheezes. Normal respiratory effort. CARDIAC: Normal rate. Normal rhythm. Extremities warm and well perfused. GI: Soft, non-distended. No tenderness to palpation. No rebound or guarding. No masses. RECTAL: Deferred. MUSCULOSKELETAL: Atraumatic. Chest examination reveals no tenderness. Lumbar tenderness appreciated and pain on bilateral leg raise in back. LOWER EXTREMITIES: Calves are equal size bilaterally and non-tender. No edema NEURO: Normal sensorium. No sensory or motor deficits noted. No facial droop. Intact 5/5 upper and lower extremity strength. SKIN: Warm and dry. No rash or jaundice noted. Medical Decision & Procedures ER Provider Diagnostic Interpretation: Radiology results as stated below per my review and radiologist interpretation: CHEST ONE VIEW PORTABLE HISTORY: 62 years-old Male EVALUATE WEAKNESS acute weakness COMPARISON: None available TECHNIQUE: Portable AP view of the chest FINDINGS: Loop recorder device projects over the left heart border. Cardiac silhouette is upper limits of normal in size. Moderate right hemidiaphragmatic elevation. Subsegmental left basilar opacities suggest atelectasis. There is no pneumothorax, pleural effusion or overt pulmonary edema. Bones of the chest appear intact. IMPRESSION: Right hemidiaphragmatic elevation without acute process. The above report was generated using voice recognition software. It may contain grammatical, syntax or spelling errors. Electronically signed by: Michael Watson M.D. 03/27/2018 5:53 PM Dictated Date/Time: 03/27/2018 5:51 PM Laboratory Results 03/27/18 17:50 Red Blood Count 4.61, Mean Corpuscular Volume 89.8, Mean Corpuscular Hemoglobin 31.5, Mean Corpuscular Hemoglobin Concent 35.0, Mean Platelet Volume 10.2, Neutrophils (%) (Auto) 55.5, Lymphocytes (%) (Auto) 26.3, Monocytes (%) (Auto) 9.7, Eosinophils (%) (Auto) 7.0, Basophils (%) (Auto) 0.8, Neutrophils # (Auto) 4.23, Lymphocytes # (Auto) 2.00, Monocytes # (Auto) 0.74, Eosinophils # (Auto) 0.53, Basophils # (Auto) 0.06 03/27/18 17:50 Test 03/27/18 17:50 White Blood Count 7.61 K/uL (4.8-10.8) Red Blood Count 4.61 M/uL (4.7-6.1) Hemoglobin 14.5 g/dL (14.0-18.0) Hematocrit 41.4 % (42-52) Mean Corpuscular Volume 89.8 fL (80-100) Mean Corpuscular Hemoglobin 31.5 pg (25-34) Mean Corpuscular Hemoglobin Concent 35.0 g/dl (32-36) Platelet Count 187 K/uL (130-400) Mean Platelet Volume 10.2 fL (7.4-10.4) Neutrophils (%) (Auto) 55.5 % Lymphocytes (%) (Auto) 26.3 % Monocytes (%) (Auto) 9.7 % Eosinophils (%) (Auto) 7.0 % Basophils (%) (Auto) 0.8 % Neutrophils # (Auto) 4.23 K/uL (1.4-6.5) Lymphocytes # (Auto) 2.00 K/uL (1.2-3.4) Monocytes # (Auto) 0.74 K/uL (0.11-0.59) Eosinophils # (Auto) 0.53 K/uL (0-0.5) Basophils # (Auto) 0.06 K/uL (0-0.2) RDW Standard Deviation 42.7 fL (36.4-46.3) RDW Coefficient of Variation 13.2 % (11.5-14.5) Immature Granulocyte % (Auto) 0.7 % Immature Granulocyte # (Auto) 0.05 K/uL (0.00-0.02) Prothrombin Time 10.4 SECONDS (9.0-12.0) Prothromb Time International Ratio 1.0 (0.9-1.1) Activated Partial Thromboplast Time 28.7 SECONDS (21.0-31.0) Partial Thromboplastin Ratio 1.1 Anion Gap 5.0 mmol/L (3-11) Est Creatinine Clear Calc Drug Dose 76.3 ml/min Estimated GFR () 84.2 Estimated GFR (Non- 72.7 BUN/Creatinine Ratio 19.1 (10-20) Calcium Level 9.2 mg/dl (8.5-10.1) Magnesium Level 1.8 mg/dl (1.8-2.4) Total Bilirubin 0.6 mg/dl (0.2-1) Direct Bilirubin 0.2 mg/dl (0-0.2) Aspartate Amino Transf (AST/SGOT) 25 U/L (15-37) Alanine Aminotransferase (ALT/SGPT) 46 U/L (12-78) Alkaline Phosphatase 128 U/L (45-117) Ammonia 23.1 umol/L (11-32) Troponin I < 0.015 ng/ml (0-0.045) Total Protein 7.4 gm/dl (6.4-8.2) Albumin 3.8 gm/dl (3.4-5.0) Lipase 206 U/L (73-393) Thyroid Stimulating Hormone (TSH) 1.120 uIu/ml (0.300-4.500) Laboratory results reviewed by me Medications Administered Medications (Trade) Dose Ordered Sig/Shemar Route Start Time Stop Time Status Last Admin Dose Admin Sodium Chloride 500 ml @ 999 mls/hr Q31M ONCE IV 03/27/18 17:21 03/27/18 17:51 DC 03/27/18 17:21 999 MLS/HR Oxycodone HCl (Roxicodone Immediate Rel Tab) 10 mg NOW STAT PO 03/27/18 19:04 03/27/18 19:05 DC 03/27/18 19:19 10 MG ECG Per My Interpretation Indication: weakness Rate (beats per minute): 67 Rhythm: normal sinus Findings: other (normal axis. normal intervals. no ST segment elevations.) Comparison ECG Date: 03/19/18 Change: no significant change ED Course 1711: The patient was evaluated in room B11B. A complete history and physical exam was performed. 1720: Ordered Sodium Chloride 500 ml @ 1000 mls/hr IV. 1899: I reevaluated the patient. Discussed results and discharge instructions: he verbalized understanding and agreement. The patient is ready for discharge. 1903: Ordered Oxycodone HCl 10 mg PO. Medical Decision Etiologies such as metabolic, infection, hypo/hyperglycemia, electrolyte abnormalities, cardiac sources, intracerebral event, toxicologic, neurologic, as well as others were entertained. Patient presents with issues with back pain and sciatica along with reports of being off yesterday and a bit today. No trauma reported. No new focality to exam. Pain complaints are similar to previous and had extensive evaluation during recent admission. Cousin reports checking his blood sugar and blood pressure during these events and not noting significant abnormalities. Well- appearing on exam. Basic labs are completed and look for possible electrolyte or metabolic derangement that could be causing his symptoms; not found. This could all be related to effects of the multiple pain medicines he is on. Cousin has been cutting back on the amount of narcotics she is giving him. Do not believe imaging would be additionally helpful of his back at this time or head. Doubt cauda equina. Do not believe this is stroke or CVA. Doubt this is DVT or other acute lower extremity issue. Labs unremarkable. Given findings feel that he is safe for discharge and outpatient follow-up. Patient and cousin in agreement with plan. Discussed using lower doses of as needed pain medications and continue close monitoring. Discussed fall precautions. He has outpatient follow-up tomorrow. Medication Reconcilliation Current Medication List: was personally reviewed by me Blood Pressure Screening Patient's blood pressure: Normal blood pressure Blood pressure disposition: Did not require urgent referral Impression Primary Impression: Sciatica Additional Impression: Weakness Scribe Attestation The scribe's documentation has been prepared under my direction and personally reviewed by me in its entirety. I confirm that the note above accurately reflects all work, treatment, procedures, and medical decision making performed by me. Departure Information Dispostion Home / Self-Care Referrals No Doctor, Assigned (PCP) Forms HOME CARE DOCUMENTATION FORM, IMPORTANT VISIT INFORMATION Patient Instructions My [facility] [employer] Additional Instructions Continue to maintain hydration and eat. Utilize your pain medicine as needed for your pain, being cautious if you feel overly sedated to use to reduce dosages. Recommend close outpatient follow-up as scheduled tomorrow. Please be careful and avoid falls. If you have any new or concerning symptoms please feel free to be present here for reevaluation. Problem Qualifiers Primary Impression: Sciatica Laterality: bilateral Qualified Codes: M54.31 - Sciatica, right side; M54.32 - Sciatica, left side
[2018-03-27 17:43] VITALS: O2SAT 98
[2018-03-27 17:47] VITALS: Ht 167.6 cm; Wt 97.0 kg
--- NOTE | 2018-03-27 17:54 | DIAGNOSTIC IMAGING REPORT ---
CHEST ONE VIEW PORTABLE HISTORY: 62 years-old Male EVALUATE WEAKNESS acute weakness COMPARISON: None available TECHNIQUE: Portable AP view of the chest FINDINGS: Loop recorder device projects over the left heart border. Cardiac silhouette is upper limits of normal in size. Moderate right hemidiaphragmatic elevation. Subsegmental left basilar opacities suggest atelectasis. There is no pneumothorax, pleural effusion or overt pulmonary edema. Bones of the chest appear intact. IMPRESSION: Right hemidiaphragmatic elevation without acute process. The above report was generated using voice recognition software. It may contain grammatical, syntax or spelling errors. Electronically signed by: Michael Watson M.D. 03/27/2018 5:53 PM Dictated Date/Time: 03/27/2018 5:51 PM
[2018-03-27 17:55] VITALS: PULSE 65
[2018-03-27 18:09] LABS: BASO % 0.8 %; BASO ABS # 0.06 K/uL (0-0.2); EOS ABS # 0.53 K/uL (0-0.5); HEMATOCRIT 41.4 % (42-52); HEMOGLOBIN 14.5 g/dL (14.0-18.0); IG# 0.05 K/uL (0.00-0.02); LYMPH % 26.3 %; MEAN CELL VOLUME 89.8 fL (80-100); MEAN CORPUSCULAR HEMOGLOBIN 31.5 pg (25-34); MEAN PLATELET VOLUME 10.2 fL (7.4-10.4); MONO % 9.7 %; MONO ABS # 0.74 K/uL (0.11-0.59); NEUT % 55.5 %; NEUT ABS # 4.23 K/uL (1.4-6.5); PLATELET COUNT 187 K/uL (130-400); RED CELL DISTRIBUTION WIDTH CV 13.2 % (11.5-14.5); RED CELL DISTRIBUTION WIDTH SD 42.7 fL (36.4-46.3); WHITE BLOOD COUNT 7.61 K/uL (4.8-10.8)
[2018-03-27 18:24] LABS: PTT PATIENT 28.7 SECONDS (21.0-31.0)
[2018-03-27 18:37] LABS: ALBUMIN 3.8 gm/dl (3.4-5.0); ALKALINE PHOSPHATASE 128 U/L (45-117); ALT/SGPT 46 U/L (12-78); AST/SGOT 25 U/L (15-37); BLOOD UREA NITROGEN 21 mg/dl (7-18); CALCIUM 9.2 mg/dl (8.5-10.1); CARBON DIOXIDE 28 mmol/L (21-32); CREATININE 1.08 mg/dl (0.60-1.40); GLUCOSE 105 mg/dl (70-99); LIPASE 206 U/L (73-393); POTASSIUM 4.6 mmol/L (3.5-5.1); SODIUM 136 mmol/L (136-145); TOTAL PROTEIN 7.4 gm/dl (6.4-8.2)
[2018-03-27] MEDS ORDERED: OXYCODONE HCL IR 5 MG TAB (IMMEDIATE RELEASE) PO STA (19:04)
[2018-03-27 19:19] VITALS: BP 129/84; O2SAT 96
== END 2018-03-27 19:20 | disposition home or self-care (01) ==
LOC: C.EDB 17:03
DX: M54.31 Sciatica, right side (principal); M54.32 Sciatica, left side; R53.1 Weakness; R10.9 Unspecified abdominal pain; E11.9 Type 2 diabetes mellitus without complications; I10 Essential (primary) hypertension; Z79.84 Long term (current) use of oral hypoglycemic drugs; Z79.899 Other long term (current) drug therapy; Z98.1 Arthrodesis status